=== PATIENT | female | born 1960 | race Two or more races ===

== ENCOUNTER 2016-10-13 09:33 | Outpatient (CLI) | payer BC ==
[~2016-10-13 09:33] MED LIST: ATOR10TA PO; Docusate Sodium PO; FERR-58 PO; FOLI1TAB16 PO; HYDR-3326 PO; MIRT7.5T10 PO; PANT40TA2 PO; SENN1TAB6 PO; VENL150C58 PO
== END 2016-10-13 23:59 | disposition home or self-care (01) ==
LOC: LAB 09:33
DX: M47.892 Other spondylosis, cervical region (principal); R20.0 Anesthesia of skin
CPT/HCPCS: 72141-TC

== ENCOUNTER 2016-12-21 09:36 | Outpatient (CLI) | payer BC ==
[2016-12-21 10:11] LABS: BASOPHILS % (AUTO) 0.4 % (0.0-2.0); EOSINOPHILS # (AUTO) 0.1 /CMM (0.0-0.7); HEMATOCRIT 42 % (33-45); LYMPHOCYTES # (AUTO) 1.8 /CMM (0.8-4.8); LYMPHOCYTES % (AUTO) 26.5 % (20.0-44.0); MEAN CORPUSCULAR HEMOGLOBIN 26 PG (26.0-33.0); MEAN CORPUSCULAR HGB CONC 33 g/dl (31.0-36.0); MEAN CORPUSCULAR VOLUME 78 fL (82-100); MONOCYTES # (AUTO) 0.5 /CMM (0.1-1.30); MONOCYTES % (AUTO) 6.8 % (2.0-12.0); NEUTROPHILS # (AUTO) 4.3 /CMM (1.8-8.9); NEUTROPHILS % (AUTO) 64.3 % (43.0-81.0); PLATELET COUNT (AUTO) 236 /CMM (150-450); RDW COEFFICIENT OF VARIATION 13.3 (11.5-15.0); RED BLOOD CELL COUNT(AUTO) 5.36 MIL/uL (4.0-5.2); WHITE BLOOD COUNT (AUTO) 6.8 K/uL (4.3-11.0)
[2016-12-21 10:26] LABS: ALBUMIN 3.7 g/dL (3.4-5.0); BILIRUBIN,TOTAL 0.3 mg/dL (0.2-1.0); CALCIUM, SERUM 8.8 mg/dL (8.5-10.1); CREATININE 0.8 mg/dL (0.6-1.3); POTASSIUM 4.1 mmol/L (3.5-5.1); TOTAL PROTEIN, SERUM 7.5 g/dL (6.4-8.2)
[2016-12-21 10:35] LABS: THYROID STIMULATING HORMONE 3.152 uIU/mL (0.358-3.74)
== END 2016-12-21 23:59 | disposition home or self-care (01) ==
LOC: LAB 09:36
PROVIDERS: ATTEND Family Medicine
DX: E55.9 Vitamin D deficiency, unspecified (principal); E78.5 Hyperlipidemia, unspecified
CPT/HCPCS: 36415; 80053-TC; 80061-TC; 82306; 84439-TC; 84443-TC; 85025-TC

== ENCOUNTER 2017-01-12 13:11 | Outpatient (CLI) | payer BC ==
[2017-01-12 13:53] LABS: BASOPHILS % (AUTO) 0.5 % (0.0-2.0); EOSINOPHILS # (AUTO) 0.1 /CMM (0.0-0.7); EOSINOPHILS % (AUTO) 1.8 % (0.0-6.0); HEMATOCRIT 42 % (33-45); LYMPHOCYTES # (AUTO) 1.8 /CMM (0.8-4.8); LYMPHOCYTES % (AUTO) 29.1 % (20.0-44.0); MEAN CORPUSCULAR HEMOGLOBIN 27 PG (26.0-33.0); MEAN CORPUSCULAR HGB CONC 34 g/dl (31.0-36.0); MEAN CORPUSCULAR VOLUME 80 fL (82-100); MONOCYTES # (AUTO) 0.6 /CMM (0.1-1.30); MONOCYTES % (AUTO) 9.9 % (2.0-12.0); NEUTROPHILS # (AUTO) 3.7 /CMM (1.8-8.9); NEUTROPHILS % (AUTO) 58.7 % (43.0-81.0); PLATELET COUNT (AUTO) 247 /CMM (150-450); RDW COEFFICIENT OF VARIATION 14.5 (11.5-15.0); RED BLOOD CELL COUNT(AUTO) 5.26 MIL/uL (4.0-5.2); WHITE BLOOD COUNT (AUTO) 6.3 K/uL (4.3-11.0)
[2017-01-12 14:13] LABS: ALBUMIN 3.8 g/dL (3.4-5.0); BILIRUBIN,TOTAL 0.3 mg/dL (0.2-1.0); CALCIUM, SERUM 9.1 mg/dL (8.5-10.1); CREATININE 0.8 mg/dL (0.6-1.3); POTASSIUM 3.6 mmol/L (3.5-5.1); TOTAL PROTEIN, SERUM 7.6 g/dL (6.4-8.2)
[2017-01-13 13:12] LABS: *SPE PROTEIN TOTAL 7.2 g/dL (6.0-8.5)
== END 2017-01-12 23:59 | disposition home or self-care (01) ==
LOC: LAB 13:11
PROVIDERS: ATTEND Family Medicine
DX: R74.8 Abnormal levels of other serum enzymes (principal)
CPT/HCPCS: 36415; 80053-TC; 85025-TC

== ENCOUNTER 2017-02-22 11:54 | Outpatient (CLI) | payer BC ==
[2017-02-22 13:01] LABS: ALBUMIN 4.1 g/dL (3.4-5.0); BILIRUBIN,TOTAL 0.3 mg/dL (0.2-1.0); CREATININE 0.9 mg/dL (0.6-1.3); POTASSIUM 3.5 mmol/L (3.5-5.1)
[2017-02-25 06:12] LABS: *IFEU ALBUMIN Note: % (.); *PEU PROTEIN,TOTAL 18.3 mg/dL (Not Estab.)
== END 2017-02-22 23:59 | disposition home or self-care (01) ==
LOC: LAB 11:54
PROVIDERS: ATTEND Internal Medicine Hematology & Oncology
DX: M16.0 Bilateral primary osteoarthritis of hip (principal); M41.84 Other forms of scoliosis, thoracic region; M41.86 Other forms of scoliosis, lumbar region; M47.894 Other spondylosis, thoracic region; D47.2 Monoclonal gammopathy
CPT/HCPCS: 36415; 77075-TC; 80053-TC; 82232; 84156; 84166; 86335

== ENCOUNTER 2017-03-17 10:52 | Inpatient (IN) | payer BC ==
[~2017-03-17] VITALS: Ht 154.9 cm; Wt 70.3 kg
--- NOTE | 2017-03-17 10:52 | NUR ---
PRESENTS SELF TO ED CHEST TIGHTNESS/ PRESSURE,6, NON RADIATING-- PER PT SHE WAS SENT BY MD ARREOLA FOR FURTHER EVALUATION DT ABNORMAL EKG. PATIENT APPEARS IN NO APPARENT DISTRESS. RESPIRATION EVEN AND UNLABORED. SKIN IS WARM TO TOUCH AND NON DIAPHORETIC. AFEBRILE. VSS
[2017-03-17 11:18] LABS: BASOPHILS % (AUTO) 0.4 % (0.0-2.0); EOSINOPHILS # (AUTO) 0.1 /CMM (0.0-0.7); EOSINOPHILS % (AUTO) 1.5 % (0.0-6.0); HEMATOCRIT 44 % (33-45); HEMOGLOBIN 14.6 g/dL (11.5-14.8); LYMPHOCYTES # (AUTO) 1.8 /CMM (0.8-4.8); LYMPHOCYTES % (AUTO) 21.9 % (20.0-44.0); MEAN CORPUSCULAR HEMOGLOBIN 27 PG (26.0-33.0); MEAN CORPUSCULAR HGB CONC 34 g/dl (31.0-36.0); MEAN CORPUSCULAR VOLUME 79 fL (82-100); MONOCYTES # (AUTO) 0.5 /CMM (0.1-1.30); MONOCYTES % (AUTO) 6.2 % (2.0-12.0); NEUTROPHILS # (AUTO) 5.6 /CMM (1.8-8.9); PLATELET COUNT (AUTO) 240 /CMM (150-450); RDW COEFFICIENT OF VARIATION 13.5 (11.5-15.0); RED BLOOD CELL COUNT(AUTO) 5.51 MIL/uL (4.0-5.2)
[2017-03-17 11:28] LABS: CALCIUM, SERUM 8.7 mg/dL (8.5-10.1); CARBON DIOXIDE 26 mmol/L (21-32); CHLORIDE 101 mmol/L (98-107); CREATININE 0.9 mg/dL (0.6-1.3); GLUCOSE 158 mg/dL (74-106); POTASSIUM 3.7 mmol/L (3.5-5.1); SODIUM SERUM 134 mmol/L (136-145); UREA NITROGEN, BLOOD 9 mg/dL (7-18)
[2017-03-17 11:34] LABS: INR 0.9 (0.87-1.13); PROTHROMBIN TIME 9.4 SECS (9.5-12.7)
[2017-03-17 11:38] LABS: TROPONIN I < 0.017 ng/mL (0.00-0.056)
[2017-03-17] MEDS ORDERED: GABA-534 PO (11:39)
[2017-03-17] MEDS ORDERED: OMEP20CA10 PO (11:39)
[2017-03-17] MEDS ORDERED: ATEN25TA PO (11:39)
[2017-03-17] MEDS ORDERED: VENL75CA62 PO (11:39)
[2017-03-17] MEDS ORDERED: BACL10TA PO (11:39)
--- NOTE | 2017-03-17 12:05 | NUR ---
PATIENT WAS TAKEN TO CT
--- NOTE | 2017-03-17 12:51 | NUR ---
FRANSICO SHERMAN PAGED [phone]
--- NOTE | 2017-03-17 13:02 | NUR ---
TRIED GIVING REPORT BUT RN IS STILL DISCHARGING ANOTHER PATIENT
--- NOTE | 2017-03-17 13:59 | NUR ---
PT TRANSPORTED TO [facility]
--- NOTE | 2017-03-17 15:45 | NUR ---
SALES REPRESENTATIVE DOOR TO DOOR NOTES PATIENT RECEIVED FROM E.R. DEPT VIA [facility], ADMITTED UNDER FRANSICO BROOKS BIOSTATISTICS PROFESSOR, WITH DIAGNOSIS OF CHEST PAIN, PATIENT IS ALERT AND ORIENTED, VERBALLY RESPONSIVE, DENIES CHEST PAIN AT THIS TIME, NO SOB NOTED, SKIN ASSESSMENT COMPLETED, SKIN DRY AND INTACT, PIV ON LEFT AC PATENT AND FLUSHES WELL, PATIENT ABLE TO AMBULATE INDEPENDENTLY, CONTINENT TO BOTH BOWEL AND BLADDER, FRANSICO SHERMAN SEEN AND EXAMINED THE PATIENT, AND RECOMMENDED STRESS TEST, PATIENT AGREED, ALL NEEDS ATTENDED AND MET, SAFETY MEASURES IN PLACED, CALL LIGHT WITHIN REACH, WILL CONTINUE TO MONITOR.
--- NOTE | 2017-03-17 18:52 | NUR ---
ROLL CAPPER NOTES PATIENT ALERT AND ORIENTED, NO DISTRESS NOTED, DENIES CHEST PAIN AT THIS TIME, IVF INFUSING AND TOLERATING WELL, PATIENT IS SCHEDULED TO HAVE CT ANGIO HEART WITH 3D IMAGES TOMORROW, PER DR. MENDEZ, PATIENT WILL BE NPO AFTER MIDNIGHT, ALL NEEDS ATTENDED AND ANTICIPATED, CALL LIGHT WITHIN REACH, WILL CONTINUE TO MONITOR.
--- NOTE | 2017-03-17 19:30 | NUR ---
PARTS ADVISOR NOTE: PATIENT RESTING IN BED, NO ACUTE DISTRESS NOTED. BREATHING EVEN AND UNLABORED, NO SOB NOTED. IV TO LAC IN PLACE, INFUSING NS AT 75 ML/HR. TELE READING SR 100. INSTRUCTED PATIENT THAT SHE WILL BE HAVING CT ANGIO OF HEART WITH 3D IMAGING TOMORROW AND NOT TO EAT OR DRINK AFTER MIDNIGHT. CONSENT SIGNED AND IN CHART ALREADY. BED LOCKED AND IN LOWEST POSITION, CALL LIGHT IN REACH. WILL CONTINUE TO MONITOR.
[2017-03-17 20:00] VITALS: BP 121/82
[2017-03-18] VITALS: BP 138/81
--- NOTE | 2017-03-18 00:05 | NUR ---
SEPHORA PRODUCT CONSULTANT NOTE: PATIENT NPO FOR CT ANGIO HEART WITH 3D IMAGING, INSTRUCTED PATIENT THAT SHE NO LONGER CAN EAT OR DRINK. LAST OFFER FOR JUICE OR WATER GIVEN. WATER PITCHERS EMPTIED AND REMOVED. WILL CONTINUE TO MONITOR.
[2017-03-18 04:00] VITALS: BP 137/80
[2017-03-18 06:00] VITALS: BP 139/83
--- NOTE | 2017-03-18 06:05 | NUR ---
ENVIRONMENTAL WEB CRAWLER NOTE: PATIENT RESTING IN BED, NO ACUTE DISTRESS NOTED. BREATHING EVEN AND UNLABORED, NO SOB NOTED. IV TO LAC IN PLACE, INFUSING NS AT 75 ML/HR. TELE READING SR 80. PATIENT WILL HAVE CT ANGIO OF HEART WITH 3D IMAGING TODAY AND DID NOT TO EAT OR DRINK SINCE MIDNIGHT. CONSENT SIGNED AND IN CHART ALREADY. BED LOCKED AND IN LOWEST POSITION, CALL LIGHT IN REACH. WILL ENDORSE TO DAY NURSE TO CONTINUE WITH PLAN OF CARE.
[2017-03-18 07:05] LABS: BASOPHILS % (AUTO) 0.6 % (0.0-2.0); EOSINOPHILS # (AUTO) 0.2 /CMM (0.0-0.7); EOSINOPHILS % (AUTO) 2.6 % (0.0-6.0); HEMATOCRIT 42 % (33-45); HEMOGLOBIN 13.6 g/dL (11.5-14.8); LYMPHOCYTES # (AUTO) 1.8 /CMM (0.8-4.8); LYMPHOCYTES % (AUTO) 27.1 % (20.0-44.0); MEAN CORPUSCULAR HEMOGLOBIN 26 PG (26.0-33.0); MEAN CORPUSCULAR HGB CONC 33 g/dl (31.0-36.0); MEAN CORPUSCULAR VOLUME 80 fL (82-100); MONOCYTES # (AUTO) 0.7 /CMM (0.1-1.30); MONOCYTES % (AUTO) 10.7 % (2.0-12.0); NEUTROPHILS # (AUTO) 3.9 /CMM (1.8-8.9); PLATELET COUNT (AUTO) 245 /CMM (150-450); RDW COEFFICIENT OF VARIATION 14.8 (11.5-15.0); RED BLOOD CELL COUNT(AUTO) 5.19 MIL/uL (4.0-5.2); WHITE BLOOD COUNT (AUTO) 6.6 K/uL (4.3-11.0)
[2017-03-18 07:31] LABS: CALCIUM, SERUM 8.7 mg/dL (8.5-10.1); CREATININE 0.7 mg/dL (0.6-1.3); MAGNESIUM 2.2 mg/dL (1.8-2.4); PHOSPHORUS 3.7 mg/dL (2.5-4.9); POTASSIUM 4.4 mmol/L (3.5-5.1)
[2017-03-18 08:00] VITALS: BP 137/89
--- NOTE | 2017-03-18 08:00 | NUR ---
SUPERVISOR UNDERWRITING CLERKS NOTES PATIENT RESTING IN BED, AWAKE, TALKATIVE. NO C/O CHEST PAIN, NO SOB NOTED. AMBULATORY & CONTINENT OF B & BM. BED IN LOW LOCKED POSITION. CALL LIGHT WITHIN REACH. OBSERVING CLOSELY.
--- NOTE | 2017-03-18 12:00 | NUR ---
RECORDS MANAGEMENT COORDINATOR NOTES PATIENT RESTING IN BED. NO C/O CHEST PAIN NOTED. AMBULATORY TOLERATED. NPO AT THIS TIME DUE TO SCHEDULED CT ANGIOGRAM OF HEART WITH 3D IMAGE. NO OTHER COMPLICATIONS NOTED. MONITORING CLOSELY.
[2017-03-18] MEDS ORDERED: LEVO25TA7 PO (13:38)
[2017-03-18] MEDS ORDERED: ASPI81TA2 PO (13:38)
[2017-03-18] MEDS ORDERED: METO25TA20 PO (13:38)
[2017-03-18 16:00] VITALS: BP 123/81
--- NOTE | 2017-03-18 17:00 | NUR ---
MS RN PATIENT MONITORED ORDERED, WILL BE DISCHARGE HOME SOON.
--- NOTE | 2017-03-18 18:15 | NUR ---
MS RN PRESCRIPTION FAXED TO PHARMACY,PATIENT WENT HOME ACCOMPANIED BY FAMILY MEMBER, DISCHARGE INSTRUCTIONS GIVEN AND UNDERSTOOD, NO DISTRESS NOTED.
== END 2017-03-18 18:51 | disposition home or self-care (01) | DRG 303 ==
LOC: ER 10:54 → TELE 12:40
PROVIDERS: ADMIT Nurse Practitioner Acute Care; ATTEND Nurse Practitioner Acute Care
DX: I25.119 Atherosclerotic heart disease of native coronary artery with unspecified angina pectoris (principal); I42.9 Cardiomyopathy, unspecified; E87.1 Hypo-osmolality and hyponatremia; I10 Essential (primary) hypertension; K21.9 Gastro-esophageal reflux disease without esophagitis; E86.9 Volume depletion, unspecified; E78.5 Hyperlipidemia, unspecified; F32.9 Major depressive disorder, single episode, unspecified; E03.9 Hypothyroidism, unspecified; R00.0 Tachycardia, unspecified; M54.12 Radiculopathy, cervical region
CPT/HCPCS: 36415; 71010-TC; 75574; 80048-TC; 80061-TC; 83735-TC; 83880; 84100-TC; 84439-TC; 84443-TC; 84480; 84484-TC; 85025-TC; 85730-TC; 87081-TC; 93307-TC; A4606; J2785; J3490; J7030; J7050; Q9967; Z7610

== ENCOUNTER 2017-04-07 11:44 | Outpatient (CLI) | payer BC ==
[~2017-04-07 11:44] MED LIST changes: +ASPI81TA2 PO; +ATEN25TA PO; +BACL10TA PO; -Docusate Sodium PO; -FERR-58 PO; -FOLI1TAB16 PO; +GABA-534 PO; -HYDR-3326 PO; +LEVO25TA7 PO; +METO25TA20 PO; +OMEP20CA10 PO; -PANT40TA2 PO; -SENN1TAB6 PO; -VENL150C58 PO; +VENL75CA62 PO
[2017-04-07 12:24] LABS: BASOPHILS % (AUTO) 0.7 % (0.0-2.0); EOSINOPHILS # (AUTO) 0.1 /CMM (0.0-0.7); EOSINOPHILS % (AUTO) 1.9 % (0.0-6.0); HEMATOCRIT 43 % (33-45); HEMOGLOBIN 14.2 g/dL (11.5-14.8); LYMPHOCYTES # (AUTO) 2.2 /CMM (0.8-4.8); LYMPHOCYTES % (AUTO) 29.4 % (20.0-44.0); MEAN CORPUSCULAR HEMOGLOBIN 26 PG (26.0-33.0); MEAN CORPUSCULAR HGB CONC 33 g/dl (31.0-36.0); MEAN CORPUSCULAR VOLUME 80 fL (82-100); MONOCYTES # (AUTO) 0.7 /CMM (0.1-1.30); MONOCYTES % (AUTO) 8.9 % (2.0-12.0); NEUTROPHILS # (AUTO) 4.4 /CMM (1.8-8.9); NEUTROPHILS % (AUTO) 59.1 % (43.0-81.0); PLATELET COUNT (AUTO) 249 /CMM (150-450); RDW COEFFICIENT OF VARIATION 14.4 (11.5-15.0); RED BLOOD CELL COUNT(AUTO) 5.44 MIL/uL (4.0-5.2); WHITE BLOOD COUNT (AUTO) 7.5 K/uL (4.3-11.0)
[2017-04-07 12:45] LABS: ALBUMIN 3.8 g/dL (3.4-5.0); BILIRUBIN,TOTAL 0.2 mg/dL (0.2-1.0); CALCIUM, SERUM 8.8 mg/dL (8.5-10.1); CREATININE 0.9 mg/dL (0.6-1.3); TOTAL PROTEIN, SERUM 7.6 g/dL (6.4-8.2)
[2017-04-07 12:54] LABS: T4 (THYROXINE) 10.4 ug/dL (4.7-13.3); THYROID STIMULATING HORMONE 3.715 uIU/mL (0.358-3.74)
== END 2017-04-07 23:59 | disposition home or self-care (01) ==
LOC: LAB 11:44
PROVIDERS: ATTEND Family Medicine
DX: R00.0 Tachycardia, unspecified (principal)
CPT/HCPCS: 36415; 80053-TC; 84436-TC; 84443-TC; 85025-TC

== ENCOUNTER 2017-05-19 08:58 | Outpatient (CLI) | payer BC ==
[2017-05-19 09:44] LABS: BASOPHILS # (AUTO) 0.1 /CMM (0.0-0.2); EOSINOPHILS # (AUTO) 0.2 /CMM (0.0-0.7); EOSINOPHILS % (AUTO) 3.1 % (0.0-6.0); HEMATOCRIT 42 % (33-45); HEMOGLOBIN 13.8 g/dL (11.5-14.8); LYMPHOCYTES # (AUTO) 1.9 /CMM (0.8-4.8); LYMPHOCYTES % (AUTO) 30.2 % (20.0-44.0); MEAN CORPUSCULAR HEMOGLOBIN 26 PG (26.0-33.0); MEAN CORPUSCULAR HGB CONC 33 g/dl (31.0-36.0); MEAN CORPUSCULAR VOLUME 78 fL (82-100); MONOCYTES # (AUTO) 0.6 /CMM (0.1-1.30); NEUTROPHILS # (AUTO) 3.5 /CMM (1.8-8.9); NEUTROPHILS % (AUTO) 56.7 % (43.0-81.0); PLATELET COUNT (AUTO) 287 /CMM (150-450); RDW COEFFICIENT OF VARIATION 13.6 (11.5-15.0); RED BLOOD CELL COUNT(AUTO) 5.34 MIL/uL (4.0-5.2); WHITE BLOOD COUNT (AUTO) 6.1 K/uL (4.3-11.0)
[2017-05-19 09:59] LABS: ALBUMIN 3.8 g/dL (3.4-5.0); BILIRUBIN,TOTAL 0.2 mg/dL (0.2-1.0); CALCIUM, SERUM 9.5 mg/dL (8.5-10.1); CREATININE 0.8 mg/dL (0.6-1.3); POTASSIUM 4.3 mmol/L (3.5-5.1); TOTAL PROTEIN, SERUM 7.6 g/dL (6.4-8.2)
[2017-05-20 10:59] LABS: BETA-2 MICROGLOBULIN, SERUM 1.7 mg/L (0.6-2.4)
[2017-05-20 11:11] LABS: *IFE A/G RATIO 1.3 (0.7-1.7); *IFE ALBUMIN 3.9 g/dL (2.9-4.4); *IFE ALPHA-2-GLOBULIN 0.6 g/dL (0.4-1.0); *IFE BETA GLOBULIN 1.2 g/dL (0.7-1.3); *IFE GAMMA GLOBULIN 1.2 g/dL (0.4-1.8); *IFE M-SPIKE Not Observed g/dL (Not Observed); *IFEALPHA-1-GLOBULIN 0.2 g/dL (0.0-0.4); *SPE PROTEIN TOTAL 7.1 g/dL (6.0-8.5); IMMUNOGLOBULIN A, SERUM 223 mg/dL (87-352); IMMUNOGLOBULIN G, SERUM 1078 mg/dL (700-1600); IMMUNOGLOBULIN M, SERUM 116 mg/dL (26-217)
[2017-05-24 19:45] LABS: *PEU PROTEIN,TOTAL <4.0
== END 2017-05-19 23:59 ==
LOC: RAD 08:58
PROVIDERS: ATTEND Internal Medicine Hematology & Oncology
DX: D47.2 Monoclonal gammopathy (principal); M89.8X8 Other specified disorders of bone, other site
CPT/HCPCS: 36415; 70260-TC; 80053-TC; 82232; 82784; 84155; 84156; 84165; 84166; 85025-TC; 86334; 86335

== ENCOUNTER 2017-06-03 15:30 | Outpatient (CLI) | payer BC ==
[2017-06-03 16:12] LABS: BASOPHILS % (AUTO) 0.4 % (0.0-2.0); EOSINOPHILS # (AUTO) 0.3 /CMM (0.0-0.7); EOSINOPHILS % (AUTO) 2.6 % (0.0-6.0); HEMATOCRIT 43 % (33-45); LYMPHOCYTES # (AUTO) 2.7 /CMM (0.8-4.8); LYMPHOCYTES % (AUTO) 27.3 % (20.0-44.0); MEAN CORPUSCULAR HEMOGLOBIN 26 PG (26.0-33.0); MEAN CORPUSCULAR HGB CONC 33 g/dl (31.0-36.0); MEAN CORPUSCULAR VOLUME 79 fL (82-100); MONOCYTES # (AUTO) 0.9 /CMM (0.1-1.30); MONOCYTES % (AUTO) 8.8 % (2.0-12.0); NEUTROPHILS % (AUTO) 60.9 % (43.0-81.0); PLATELET COUNT (AUTO) 305 /CMM (150-450); RDW COEFFICIENT OF VARIATION 14.4 (11.5-15.0); RED BLOOD CELL COUNT(AUTO) 5.46 MIL/uL (4.0-5.2); WHITE BLOOD COUNT (AUTO) 9.8 K/uL (4.3-11.0)
[2017-06-03 16:13] LABS: APPEARANCE,URINE CLEAR (CLEAR); BILIRUBIN,URINE NEGATIVE (NEGATIVE); BLOOD, URINE NEGATIVE Ery/uL (NEGATIVE); COLOR,URINE YELLOW (YELLOW); KETONES,URINE TRACE (NEGATIVE); LEUKOCYTE ESTERASE ,URINE NEGATIVE (NEGATIVE); NITRITE, URINE NEGATIVE (NEGATIVE); PROTEIN,URINE NEGATIVE (NEGATIVE); UGLUCOSE NEGATIVE (NEGATIVE); UROBILINOGEN,URINE 0.2 EU/dL (0.2)
[2017-06-03 16:41] LABS: BACTERIA,URINE Few /HPF (None Seen); RBC,URINE 0-2 /HPF (0-2); SQUAMOUS EPITHELIAL CELL,UR Few /HPF (None Seen)
[2017-06-03 16:57] LABS: BILIRUBIN,TOTAL 0.2 mg/dL (0.2-1.0); CALCIUM, SERUM 9.6 mg/dL (8.5-10.1); CREATININE 0.9 mg/dL (0.6-1.3); POTASSIUM 3.8 mmol/L (3.5-5.1); TOTAL PROTEIN, SERUM 7.9 g/dL (6.4-8.2)
[2017-06-03 17:23] LABS: INR 0.92 (0.87-1.13); PROTHROMBIN TIME 9.6 SECS (9.5-12.7)
== END 2017-06-03 23:59 | disposition home or self-care (01) ==
LOC: LAB 15:30
PROVIDERS: ATTEND Family Medicine
DX: Z01.818 Encounter for other preprocedural examination (principal); M47.814 Spondylosis without myelopathy or radiculopathy, thoracic region
CPT/HCPCS: 36415; 71020-TC; 80053-TC; 81000-TC; 85025-TC; 85730-TC

== ENCOUNTER 2017-06-10 08:56 | Day surgery (SDC) | payer BC ==
[~2017-06-10 08:56] MED LIST changes: +ASPI-1169 PO; -ASPI81TA2 PO; +Sodium Chloride 4 MEQ/ML VIAL IV ONE
[2017-06-10] MEDS ORDERED: LIDOCAINE 1%-EPI 1:100,000 50 ML VIAL IJ ONE (08:57)
[2017-06-10] MEDS ORDERED: CEFAZOLIN SODIUM/DEXTROSE,ISO 50 ML IV ONE (10:00)
[2017-06-10] MEDS ORDERED: MIDAZOLAM HCL 2 MG/2ML VIAL ONE (11:55)
[2017-06-10] MEDS ORDERED: BUPIVACAINE 0.5 % PF 150 MG/30 ML VIAL ONE (12:12)
[2017-06-10] MEDS ORDERED: METRONIDAZOLE 500MG/ NS 100ML 100 ML IV ONE (12:40)
[2017-06-10] MEDS ORDERED: GELATIN SPONGE,ABSORBABLE 1 EA SPONGE TP ONE (13:18)
[2017-06-10] MEDS ORDERED: THROMBIN (BOVINE) 5,000 UNITS VIAL TP ONE (13:19)
[2017-06-10] MEDS ORDERED: HYDROCODONE/APAP 5/325MG 1 EACH TABLET PO PRN ×2 (14:00)
[2017-06-10] MEDS ORDERED: ONDANSETRON HCL/PF 4 MG/2 ML VIAL IVP PRN (14:00)
[2017-06-10] MEDS ORDERED: HYDROMORPHONE INJ 2 MG/ML DISP.SYRIN IV PRN (14:00)
[2017-06-10] MEDS ORDERED: ANESTHESIA TRAY IN PYXIS 1 EA TRAY MC ONE (14:03)
[2017-06-10] MEDS ORDERED: ONDANSETRON HCL/PF 4 MG/2 ML VIAL ONE (14:37)
== END 2017-06-10 23:59 | disposition home or self-care (01) ==
LOC: DS 08:56
PROVIDERS: ATTEND Surgery
DX: K64.4 Residual hemorrhoidal skin tags (principal); K64.8 Other hemorrhoids; I10 Essential (primary) hypertension; E11.9 Type 2 diabetes mellitus without complications; J45.909 Unspecified asthma, uncomplicated; K21.9 Gastro-esophageal reflux disease without esophagitis; F32.9 Major depressive disorder, single episode, unspecified
CPT/HCPCS: 82962-TC; A6402; A6403; J0690; J1100; J1885; J2250; J2405; J2704; J3490

== ENCOUNTER 2017-06-20 12:26 | Inpatient (IN) | payer BC ==
[~2017-06-20] VITALS: Ht 154.9 cm; Wt 66.2 kg
[~2017-06-20 12:26] MED LIST changes: -Sodium Chloride 4 MEQ/ML VIAL IV ONE
--- NOTE | 2017-06-20 12:40 | NUR ---
PT CAME IN WITH C/O RECTAL PAIN FROM HEMRRHOIDECTOMY ON 06/10/17, UNRELIEVED WITH NORCO. SEEN BY MD FOR EVAL. VSS. SAFETY AND COMFORT MEASURES PROVIDED. WILL MONITOR.
--- NOTE | 2017-06-20 12:51 | NUR ---
CALLED DR. Bang NAVA [phone]
[2017-06-20] MEDS ORDERED: ONDANSETRON HCL/PF 4 MG/2 ML VIAL ONE (12:54)
[2017-06-20] MEDS ORDERED: MORPHINE SULFATE INJ 4 MG/ML DISP.SYRIN ONE ×2 (12:55→16:27)
[2017-06-20] MEDS ORDERED: MORPHINE SULFATE INJ 2 MG/ML DISP.SYRIN IV ONE ×2 (13:00→16:30)
[2017-06-20] MEDS ORDERED: ONDANSETRON HCL/PF 4 MG/2 ML VIAL IVP ONE (13:00)
--- NOTE | 2017-06-20 13:15 | NUR ---
IV ACCESS STARTED. BLOOD DRAWN FOR LABS. MEDICATED ORDERED.
[2017-06-20 13:16] LABS: CREATININE 0.9 mg/dL (0.6-1.3); POTASSIUM 4.9 mmol/L (3.5-5.1)
[2017-06-20 13:17] LABS: EOSINOPHILS # (AUTO) 0.2 /CMM (0.0-0.7); EOSINOPHILS % (AUTO) 1.8 % (0.0-6.0); HEMATOCRIT 42 % (33-45); HEMOGLOBIN 13.5 g/dL (11.5-14.8); LYMPHOCYTES # (AUTO) 1.7 /CMM (0.8-4.8); LYMPHOCYTES % (AUTO) 15.2 % (20.0-44.0); MEAN CORPUSCULAR HEMOGLOBIN 26 PG (26.0-33.0); MEAN CORPUSCULAR HGB CONC 32 g/dl (31.0-36.0); MEAN CORPUSCULAR VOLUME 79 fL (82-100); MONOCYTES # (AUTO) 0.7 /CMM (0.1-1.30); MONOCYTES % (AUTO) 6.7 % (2.0-12.0); NEUTROPHILS # (AUTO) 8.4 /CMM (1.8-8.9); NEUTROPHILS % (AUTO) 76.3 % (43.0-81.0); PLATELET COUNT (AUTO) 401 /CMM (150-450); RDW COEFFICIENT OF VARIATION 14.6 (11.5-15.0); RED BLOOD CELL COUNT(AUTO) 5.29 MIL/uL (4.0-5.2); WHITE BLOOD COUNT (AUTO) 11.1 K/uL (4.3-11.0)
[2017-06-20] MEDS ORDERED: CARV3.122 PO (13:57)
[2017-06-20] MEDS ORDERED: MIRT15TA7 PO (13:57)
[2017-06-20] MEDS ORDERED: METF500T4 PO (13:57)
--- NOTE | 2017-06-20 14:37 | NUR ---
DR NAVA WAS PAGED
--- NOTE | 2017-06-20 16:00 | NUR ---
DR. NAVA AT BS. ASSISTED WITH WOUND CHECK AND CLEANING.
[2017-06-20] MEDS ORDERED: HYDROMORPHONE 1 MG/1 ML DISP.SYRIN IV ONE (16:30)
[2017-06-20] MEDS ORDERED: PIPERACILLIN /TAZOBACTAM 3.375 G in IV D5W 50 ML IV ONE (16:30)
--- NOTE | 2017-06-20 16:31 | NUR ---
PT MEDICATED ORDERED. FAMILY MEMBER REMAINS AT BS.
--- NOTE | 2017-06-20 16:50 | NUR ---
[facility] WAS CALLED, DR HAY HAS BEEN PAGED
--- NOTE | 2017-06-20 17:09 | NUR ---
CALLED [facility], DR HAY HAS BEEN PAGED
--- NOTE | 2017-06-20 17:10 | NUR ---
MEDSURGE ROOM 200
[2017-06-20] MEDS ORDERED: HYDROMORPHONE INJ 2 MG/ML DISP.SYRIN IV PRN (17:30)
[2017-06-20] MEDS ORDERED: HYDROMORPHONE 1 MG/1 ML DISP.SYRIN IV PRN ×2 (17:30→18:30)
--- NOTE | 2017-06-20 17:30 | NUR ---
CALLED FOR FOOD TRAY FOR PT.
--- NOTE | 2017-06-20 18:12 | NUR ---
REPORT GIVEN TO VLADIMIR SALINAS FOR MS 200.
[2017-06-20] MEDS ORDERED: MAG HYDROX/AL HYDROX/SIMETH 30 ML UDC PO PRN (18:30)
[2017-06-20] MEDS ORDERED: ONDANSETRON HCL/PF 4 MG/2 ML VIAL IVP PRN (18:30)
[2017-06-20] MEDS ORDERED: ZOLPIDEM TARTRATE 5 MG TABLET PO PRN (18:30)
[2017-06-20] MEDS ORDERED: Z GUARD REMEDY 2 OZ OINT TP PRN (18:30)
[2017-06-20] MEDS ORDERED: MORPHINE SULFATE INJ 2 MG/ML DISP.SYRIN IV PRN (18:30)
[2017-06-20] MEDS ORDERED: ACETAMINOPHEN 325 MG TABLET PO PRN (18:30)
[2017-06-20] MEDS ORDERED: MAGNESIUM HYDROXIDE 30 ML UDC PO PRN (18:30)
[2017-06-20] MEDS ORDERED: ALPRAZOLAM 0.25 MG TABLET PO PRN (18:30)
[2017-06-20] MEDS ORDERED: HYDROCODONE/APAP 5/325MG 1 EACH TABLET PO PRN (18:30)
--- NOTE | 2017-06-20 18:50 | NUR ---
MANAGER CIVIL NOTE RECEIVED PT. IN STABLE CONDITION IN WHEELCHAIR A&OX4, PT.'S AT BEDSIDE. REPORT GIVEN BY JT IN ER.
[2017-06-20] MEDS: MORPHINE SULFATE INJ 4 MG/ML DISP.SYRIN IV PRN ×2 (19:14→21:34)
[2017-06-20] MEDS: PIPERACILLIN /TAZOBACTAM 3.375 G in IV D5W 50 ML IV SCH (19:21)
[2017-06-20 19:30] VITALS: BP 129/73
[2017-06-20] MEDS ORDERED: MORPHINE SULFATE INJ 4 MG/ML DISP.SYRIN IV PRN (19:30)
--- NOTE | 2017-06-20 19:30 | NUR ---
RN NOTES RECEIVED PATIENT IN BED AWAKE, AO X 3, ABLE TO MAKE NEEDS KNOWN. NO ACUTE DISTRESS NOTED. RECTAL PAIN 3/10 AT THIS TIME, BUT GOES UP TO 10/10. NO SYMPTOMS OF HYPER/HYPOGLYCEMIA. IV SITE PATENT, INTACT; FLUSHED. SAFETY REMINDERS GIVEN. ON LOW BED WITH BILATERAL UPPER SIDE RAILS UP. CALL BUTTON WITHIN EASY REACH. WILL CONTINUE TO MONITOR.
[2017-06-20] MEDS: ENOXAPARIN SODIUM 40 MG/0.4 ML DISP.SYRIN SQ SCH (19:32)
[2017-06-20 19:53] VITALS: BP 129/73
--- NOTE | 2017-06-20 19:57 | NUR ---
RN CLOSING NOTES PT. IS IN BED A&OX4. IS AT BEDSIDE. BREATHING UNLABORED, AND EVENLY ON ROOM AIR. NO S/S OF ACUTE DISTRESS AFTER PAIN MEDICATION WAS ADMINISTERED. IV FLUIDS RUNNING ON LEFT ANTECUBITAL IV SITE. BED IS IN LOWEST AND LOCKED POSITION, 2 SIDE RAILS UP, AND INSTRUCTED PT. TO USE CALL LIGHT FOR ASSISTANCE. WILL ENDORSE REPORT TO NURSE.
[2017-06-20] MEDS ORDERED: PIPERACILLIN /TAZOBACTAM 4.5 G in IV D5W 50 ML IV SCH (21:00)
[2017-06-20] MEDS: MIRTAZAPINE 15 MG TABLET PO SCH (21:26)
[2017-06-20] MEDS: ATORVASTATIN 10 MG TABLET PO SCH (21:26)
[2017-06-20] MEDS: POLYETHYLENE GLYCOL 3350 17 GM POWD.PACK PO SCH (21:28)
[2017-06-21] MEDS: PIPERACILLIN /TAZOBACTAM 3.375 G in IV D5W 50 ML IV SCH ×4 (00:27→17:45)
[2017-06-21] MEDS: MORPHINE SULFATE INJ 4 MG/ML DISP.SYRIN IV PRN ×4 (04:57→22:31)
--- NOTE | 2017-06-21 06:22 | NUR ---
RN NOTES PATIENT ASLEEP, EASILY AROUSABLE. RESPIRATIONS EVEN. NO SIGNS OF PAIN NOTED. DUE MEDS GIVEN WITH NO ASE NOTED. NEEDS ATTENDED. SAFETY PRECAUTIONS AND COMFORT MEASURES IN PLACE. WILL GIVE REPORT TO DAY SHIFT FOR CONTINUITY OF CARE.
[2017-06-21 06:39] LABS: BASOPHILS % (AUTO) 0.4 % (0.0-2.0); EOSINOPHILS # (AUTO) 0.3 /CMM (0.0-0.7); EOSINOPHILS % (AUTO) 3.8 % (0.0-6.0); HEMATOCRIT 37 % (33-45); LYMPHOCYTES # (AUTO) 1.4 /CMM (0.8-4.8); LYMPHOCYTES % (AUTO) 18.3 % (20.0-44.0); MEAN CORPUSCULAR HEMOGLOBIN 26 PG (26.0-33.0); MEAN CORPUSCULAR HGB CONC 33 g/dl (31.0-36.0); MEAN CORPUSCULAR VOLUME 80 fL (82-100); MONOCYTES # (AUTO) 0.8 /CMM (0.1-1.30); MONOCYTES % (AUTO) 9.9 % (2.0-12.0); NEUTROPHILS # (AUTO) 5.2 /CMM (1.8-8.9); NEUTROPHILS % (AUTO) 67.6 % (43.0-81.0); PLATELET COUNT (AUTO) 315 /CMM (150-450); RDW COEFFICIENT OF VARIATION 14.9 (11.5-15.0); RED BLOOD CELL COUNT(AUTO) 4.61 MIL/uL (4.0-5.2); WHITE BLOOD COUNT (AUTO) 7.7 K/uL (4.3-11.0)
[2017-06-21 06:52] LABS: CALCIUM, SERUM 8.7 mg/dL (8.5-10.1); MAGNESIUM 2.1 mg/dL (1.8-2.4); POTASSIUM 3.3 mmol/L (3.5-5.1)
--- NOTE | 2017-06-21 07:00 | NUR ---
RECEIVED PATIENT RESTING IN BED. NO SOB OR DISTRESS NOTED AT THIS TIME. DISCONNECTED PATIENT SO SHE CAN AMBULATE TO THE RESTROOM. RVI FROM CASE MAKER SET UP SITZ BATH AND EXPLAINED THE PATIENT CAN USE IT PRN. PT REPORTS UNDERSTANDING. BED IN A LOW POSITION, CALL LIGHT WITHIN PATIENT REACH. WILL CONTINUE TO MONITOR.
[2017-06-21 08:00] VITALS: BP 110/70
[2017-06-21] MEDS: BACLOFEN (10 MG) 10 MG TABLET PO SCH ×2 (08:24→16:25)
[2017-06-21] MEDS: METFORMIN 500 MG TABLET PO SCH ×2 (08:24→16:25)
[2017-06-21] MEDS: CARVEDILOL 3.125 MG TABLET PO SCH ×2 (08:24→16:25)
[2017-06-21] MEDS: VENLAFAXINE XR 75 MG CAP.SR.24H PO SCH (08:24)
[2017-06-21] MEDS: GABAPENTIN 300 MG CAPSULE PO SCH ×2 (08:24→16:25)
[2017-06-21] MEDS ORDERED: POTASSIUM CHLORIDE 20 MEQ TAB.PRT.SR PO SCH (11:30)
--- NOTE | 2017-06-21 14:59 | NUR ---
[facility] FOR [facility] BLUE PATIENT STATES SHE WOULD LIKE A STOOL SOFTENER. WAITING FOR MR TO RETURN CALL.
[2017-06-21 16:00] VITALS: BP 113/73
--- NOTE | 2017-06-21 16:05 | NUR ---
Spoke with patient, she is alert and pleasant. She lives with her family in a multiple level home in [place].Prior to admit- patient was ambulatory and independent with adl's. Has no DME or homehealth reported. Family will provide ride when discharge. Addendum: 06/21/17 at 1605 by MADDIE BROWN RN Amended: Links added.
[2017-06-21] MEDS: SENNOSIDES/DOCUSATE SODIUM 1 TAB TABLET PO SCH (16:25)
[2017-06-21] MEDS: ENOXAPARIN SODIUM 40 MG/0.4 ML DISP.SYRIN SQ SCH (17:45)
--- NOTE | 2017-06-21 19:23 | NUR ---
NO SIGNIFICANT CHANGES IN PATIENT CONDITION THROUGHOUT THE SHIFT. NO SOB OR DISTRESS NOTED AT THIS TIME. PATIENT REPORTS TOLERABLE PAIN. BED IN A LOW POSITION, CALL LIGHT WITHIN PATIENT REACH. REPORT GIVEN TO MARNI OSEGUERA.
--- NOTE | 2017-06-21 19:30 | NUR ---
rn note; RECEIVED PT IN BED AWAKE AND ALERT. BREATHING EVENLY. NO SOB. NAD. REPORTED PAIN IS MUCH BETTER THAN BEFORE. LAST BM WAS YESTERDAY. WILL TRY MIRALAX TONIGHT TO HELP BOWEL MANAGEMENT AND PREVENT CONSTIPATION. PT WAS ENCOURAGED TO USE THE SITZ BATH AT LEAST ONE BEFORE HS. NEEDS ATTENDED. BED LOW LOCKED. CALL LIGHT WITHIN REACH. WILL CONT TO MONITOR .
[2017-06-21 20:00] VITALS: BP 109/66
[2017-06-21] MEDS: ATORVASTATIN 10 MG TABLET PO SCH (21:58)
[2017-06-21] MEDS: MIRTAZAPINE 15 MG TABLET PO SCH (21:58)
[2017-06-21] MEDS: POLYETHYLENE GLYCOL 3350 17 GM POWD.PACK PO SCH (21:58)
--- NOTE | 2017-06-21 22:35 | NUR ---
MORPHINE 4MG IV GIVE ORDERED FOR C/O RECTAL PAIN. WILL CONT TO MONITOR,
[2017-06-22] MEDS: PIPERACILLIN /TAZOBACTAM 3.375 G in IV D5W 50 ML IV SCH ×5 (00:36→23:05)
--- NOTE | 2017-06-22 06:21 | NUR ---
RN NOTE; PT IN BED SLEEPING, AROUSES EASILY. BREATHING EVENLY. NO C/O PAIN OR DISCOMFORT AT THIS TIME. ONE DOSE OF PRN MORPHINE GIVEN EFFECTIVE. PT HAD A SITZ BATH X1, MANJULA WELL. NEEDS ATTENDED. BED LOW LOCKED. CALL LIGHT WITHIN REACH. WILL CONT TO MONITOR AND WILL ENDORSE TO AM SHIFT FOR OUMAR.
--- NOTE | 2017-06-22 07:00 | NUR ---
RECEIVED PATIENT IN BATHROOM. CURRENTLY DOING SITZ BATH. PT DENIES SOB OR DISTRESS. REPORTS TOLERABLE PAIN FOR NOW. PT INSTRUCTED TO PULL THE CORD IN THE BATHROOM IF SHE NEEDS ANY ASSISTANCE.
[2017-06-22 07:30] LABS: CALCIUM, SERUM 9.1 mg/dL (8.5-10.1); CREATININE 0.9 mg/dL (0.6-1.3); POTASSIUM 3.7 mmol/L (3.5-5.1)
[2017-06-22 08:00] VITALS: BP 115/88
[2017-06-22] MEDS: MORPHINE SULFATE INJ 4 MG/ML DISP.SYRIN IV PRN ×5 (08:35→23:04)
[2017-06-22] MEDS: METFORMIN 500 MG TABLET PO SCH ×2 (08:39→17:00)
[2017-06-22] MEDS: SENNOSIDES/DOCUSATE SODIUM 1 TAB TABLET PO SCH (08:40)
[2017-06-22] MEDS: GABAPENTIN 300 MG CAPSULE PO SCH ×2 (08:40→17:16)
[2017-06-22] MEDS: VENLAFAXINE XR 75 MG CAP.SR.24H PO SCH (08:40)
[2017-06-22] MEDS: CARVEDILOL 3.125 MG TABLET PO SCH ×2 (08:40→17:16)
[2017-06-22] MEDS: BACLOFEN (10 MG) 10 MG TABLET PO SCH ×2 (08:40→17:16)
[2017-06-22 16:00] VITALS: BP 132/79
--- NOTE | 2017-06-22 16:11 | NUR ---
CALLED [facility]GG[facility] TO DR NAVA, TO INFORM HER THAT THE PATIENT IS HAVING A SEVERE INCREASE IN PAIN THAT IS NOT RESOLVED BY PAIN MEDICATIONS. ALSO REPORTED INCREASED AMOUNTS OF YELLOW DISCHARGE COMING FROM THE RECTUM. OLGA LIDIA ORDERED LIDOCAINE JELLY AND STATES SHE WILL COME SEE THE PATIENT.
[2017-06-22] MEDS ORDERED: LIDOCAINE 2% JEL 5 ML TUBE TP PRN ×2 (16:30→19:00)
[2017-06-22] MEDS ORDERED: IOHEXOL-300 100 ML VIAL IV ONE (17:08)
[2017-06-22] MEDS ORDERED: IV NS 0.9% 250 ML IV ONE (17:08)
--- NOTE | 2017-06-22 17:25 | NUR ---
HOLDING [facility] UNTIL TUESDAY EVENING PATIENT IS GOING FOR CT WITH CONTRAST TONIGHT. AWARE.
[2017-06-22] MEDS: ENOXAPARIN SODIUM 40 MG/0.4 ML DISP.SYRIN SQ SCH (18:06)
--- NOTE | 2017-06-22 19:24 | NUR ---
PT NOW RESTING COMFORTABLY IN BED. NO SOB OR DISTRESS. PATIENT REPORTS TOLERABLE PAIN. BED IN A LOW POSITION, CALL LIGHT WITHIN PATIENT REACH. ENDORSED TO MARNI FOR OUMAR.
--- NOTE | 2017-06-22 19:30 | NUR ---
RN NOTE; RECEIVED PT IN BED AWAKE AND ALERT, BREATHING EVENLY. NO SOB. NAD. REPORTED PAIN UNDER CONTROL. HAD A BM TODAY. PT TEACHING REGARDING SITZ BATH PROVIDED. NEEDS ATTENDED. BED LOW LOCKED. CALL LIGHT WITHIN REACH. WILL CONT TO MONITOR,
[2017-06-22 20:00] VITALS: BP 107/71
[2017-06-22] MEDS: POLYETHYLENE GLYCOL 3350 17 GM POWD.PACK PO SCH (21:35)
[2017-06-22] MEDS: ATORVASTATIN 10 MG TABLET PO SCH (21:35)
[2017-06-22] MEDS: MIRTAZAPINE 15 MG TABLET PO SCH (21:35)
--- NOTE | 2017-06-22 23:05 | NUR ---
MORPHINE 8MG GIVEN PER PT'S REQUEST AND C/O SEVERE RECTAL PAIN. WILL CONT TO MONITOR
[2017-06-23] MEDS: PIPERACILLIN /TAZOBACTAM 3.375 G in IV D5W 50 ML IV SCH ×4 (05:37→23:13)
--- NOTE | 2017-06-23 06:45 | NUR ---
PT IN BED AWAKE AND ALERT. NO ACUTE EVENT DURING THE NIGHT. HAD A BM. SITZ BATH X1 PERFORMED BY THE PT. ON ONGOING IV ATB THERAPY TOLERATED WELL. NEW IV LINE STARTED ON L HAND W/ GOOD BLOOD DRAW. PAIN MEDICATION GIVEN ORDERED PER PT'S REQUEST. NEEDS ATTENDED, BED LOW LOCKED .CALL LIGHT WITHIN REACH. WILL CONT TO MONITOR AND WILL ENDORSE TO AM SHIFT FOR OUMAR.
[2017-06-23 08:00] VITALS: BP 125/71
--- NOTE | 2017-06-23 08:00 | NUR ---
MS RN NOTES PATIENT IN BED RESTING NO SOB OR ACUTE DISTRESS NOTED. PATIENT ALERT, ORIENTED X4. AMBULATORY PERIPHERAL IV ON LEFT HAND INTACT PATENT. BED IN LOW LOCKED POSITION CALL LIGHT WITHIN REACH. WILL CONTINUE TO MONITOR.
[2017-06-23] MEDS: METFORMIN 500 MG TABLET PO SCH ×2 (09:00→17:00)
[2017-06-23] MEDS: SENNOSIDES/DOCUSATE SODIUM 1 TAB TABLET PO SCH (09:00)
--- NOTE | 2017-06-23 09:00 | NUR ---
MS RN NOTES PATIENT SEEN AND EVALUATED BY DR. BLUE ORDERS NOTED AND CARRIED OUT.
[2017-06-23] MEDS: MORPHINE SULFATE INJ 4 MG/ML DISP.SYRIN IV PRN ×3 (09:01→19:10)
[2017-06-23] MEDS: VENLAFAXINE XR 75 MG CAP.SR.24H PO SCH (09:05)
[2017-06-23] MEDS: GABAPENTIN 300 MG CAPSULE PO SCH ×2 (09:06→17:59)
[2017-06-23] MEDS: BACLOFEN (10 MG) 10 MG TABLET PO SCH ×2 (09:06→17:53)
[2017-06-23] MEDS: CARVEDILOL 3.125 MG TABLET PO SCH ×2 (09:07→17:53)
[2017-06-23 16:00] VITALS: BP 123/81
[2017-06-23] MEDS: ENOXAPARIN SODIUM 40 MG/0.4 ML DISP.SYRIN SQ SCH (17:54)
--- NOTE | 2017-06-23 19:41 | NUR ---
MS RN NOTES PATIENT IN BED RESTING NO SOB OR ACUTE DISTRESS NOTED. ALL DUE MEDICATIONS ADMINISTERED. ALL NEEDS MET. PAIN CONTROLLED WITH MEDICATION. ENDORSED CARE TO PM SHIFT.
[2017-06-23 20:00] VITALS: BP 131/82
--- NOTE | 2017-06-23 20:00 | NUR ---
RN NOTES RECEIVED PATIENT IN BED, ALERT AND ORIENTED X4, CALM, NO SOB, TOLERATING ROOM AIR, SPO2 95%, RECEIVED MORPHINE FOR PAIN EARLIER, NO COMPLAIN OF PAIN AT THIS TIME, LEFT FA IS SECURED WITH DRESSING, OBTAINED CONSENT FOR WOUND DEBRIDEMENT FOR TOMORROW, EXPLAINED TO PATIENT BEING NPO EXCEPT MEDS AFTER MIDNIGHT, PATIENT VERBALIZED UNDERSTANDING. NEEDS ATTENDED, CALL LIGHT WITHIN REACH.
--- NOTE | 2017-06-23 20:52 | NUR ---
RN NOTES SEEN BY DR. GONZALO NAVA REGARDING SURGICAL PROCEDURE TOMORROW. MD ANSWERED QUESTIONS FROM PATIENT.
[2017-06-23] MEDS: POLYETHYLENE GLYCOL 3350 17 GM POWD.PACK PO SCH (22:00)
[2017-06-23] MEDS: MIRTAZAPINE 15 MG TABLET PO SCH (22:11)
[2017-06-23] MEDS: ATORVASTATIN 10 MG TABLET PO SCH (22:11)
--- NOTE | 2017-06-23 22:15 | NUR ---
RN NOTES REFUSED MIRALAX, DR. NAVA MADE AWARE, EXPLAINED TO PATIENT RISKS AND BENEFITS FOR CONDITION. PER PATIENT, MIRALAX MAKES HER LOSE BOWEL CONTROL.
[2017-06-24] MEDS: PIPERACILLIN /TAZOBACTAM 3.375 G in IV D5W 50 ML IV SCH ×4 (05:20→23:06)
--- NOTE | 2017-06-24 06:55 | NUR ---
RN NOTES PATIENT IS ALERT AND AWAKE, NO SOB, NO RESPIRATORY DISTRESS, NO COMPLAIN OF PAIN AT THIS TIME, NO ADVERSE CHANGE OF CONDITION DURING SHIFT, NPO EXCEPT MEDS SINCE MIDNIGHT FOR DEBRIDEMENT OF ANAL WOUND TODAY. ALL DUE MEDICATIONS GIVEN, CALL LIGHT WITHIN REACH.
[2017-06-24 07:55] LABS: BASOPHILS % (AUTO) 0.5 % (0.0-2.0); EOSINOPHILS # (AUTO) 0.2 /CMM (0.0-0.7); EOSINOPHILS % (AUTO) 3.9 % (0.0-6.0); HEMATOCRIT 38 % (33-45); HEMOGLOBIN 12.6 g/dL (11.5-14.8); LYMPHOCYTES # (AUTO) 1.5 /CMM (0.8-4.8); LYMPHOCYTES % (AUTO) 22.8 % (20.0-44.0); MEAN CORPUSCULAR HEMOGLOBIN 26 PG (26.0-33.0); MEAN CORPUSCULAR HGB CONC 33 g/dl (31.0-36.0); MEAN CORPUSCULAR VOLUME 79 fL (82-100); MONOCYTES # (AUTO) 0.6 /CMM (0.1-1.30); MONOCYTES % (AUTO) 9.9 % (2.0-12.0); NEUTROPHILS % (AUTO) 62.9 % (43.0-81.0); PLATELET COUNT (AUTO) 345 /CMM (150-450); RDW COEFFICIENT OF VARIATION 14.9 (11.5-15.0); RED BLOOD CELL COUNT(AUTO) 4.88 MIL/uL (4.0-5.2); WHITE BLOOD COUNT (AUTO) 6.4 K/uL (4.3-11.0)
[2017-06-24 07:57] VITALS: BP 125/66
[2017-06-24 08:10] LABS: ALBUMIN 3.1 g/dL (3.4-5.0); BILIRUBIN,TOTAL 0.3 mg/dL (0.2-1.0); CALCIUM, SERUM 8.8 mg/dL (8.5-10.1); CREATININE 0.9 mg/dL (0.6-1.3); POTASSIUM 4.1 mmol/L (3.5-5.1); TOTAL PROTEIN, SERUM 7.1 g/dL (6.4-8.2)
[2017-06-24] MEDS: GABAPENTIN 300 MG CAPSULE PO SCH ×2 (08:26→18:06)
[2017-06-24] MEDS: PANTOPRAZOLE 40 MG TABLET.DR PO SCH (08:26)
[2017-06-24] MEDS: CARVEDILOL 3.125 MG TABLET PO SCH ×2 (08:26→18:07)
[2017-06-24] MEDS: BACLOFEN (10 MG) 10 MG TABLET PO SCH ×2 (08:26→18:06)
[2017-06-24] MEDS: SENNOSIDES/DOCUSATE SODIUM 1 TAB TABLET PO SCH (08:27)
[2017-06-24] MEDS: METFORMIN 500 MG TABLET PO SCH ×2 (08:27→17:00)
[2017-06-24] MEDS: VENLAFAXINE XR 75 MG CAP.SR.24H PO SCH (08:32)
--- NOTE | 2017-06-24 09:00 | NUR ---
M/S RN - AM Notes Patient awake, A/O x 4, denies pain, not in any form of distress, tolerating room air. Patient currently NPO except meds for debridement of anal wound today at 15:00. All needs attended and met. Patient assisted with morning care, due meds given and tolerated well. Will continue to monitor closely.
[2017-06-24] MEDS: MORPHINE SULFATE INJ 4 MG/ML DISP.SYRIN IV PRN ×3 (12:03→21:11)
[2017-06-24] MEDS ORDERED: ANESTHESIA TRAY IN PYXIS 1 EA TRAY MC ONE (14:21)
--- NOTE | 2017-06-24 14:50 | NUR ---
M/S RN - Notes Patient sent to OR in stable condition. Pre-op checklist completed. Heplock on the left hand is patent, intact, with no signs of infiltration. Patient endorsed to OR staff accordingly.
[2017-06-24] MEDS ORDERED: LIDOCAINE 0.5% HCL 50 ML VIAL ONE (16:01)
[2017-06-24] MEDS ORDERED: BUPIVACAINE 0.25% 75 MG/30 ML VIAL ONE (16:01)
[2017-06-24] MEDS ORDERED: MIDAZOLAM HCL 2 MG/2ML VIAL ONE (16:02)
[2017-06-24] MEDS ORDERED: FENTANYL PF 100MCG/2ML AMPUL ONE ×2 (16:02→16:34)
[2017-06-24] MEDS ORDERED: METRONIDAZOLE 500MG/ NS 100ML 100 ML IV ONE (16:23)
[2017-06-24] MEDS ORDERED: GELATIN SPONGE,ABSORBABLE 1 EA SPONGE TP ONE (16:33)
[2017-06-24] MEDS ORDERED: THROMBIN (BOVINE) 5,000 UNITS VIAL TP ONE (16:33)
[2017-06-24 18:00] VITALS: BP 134/97
[2017-06-24] MEDS: ENOXAPARIN SODIUM 40 MG/0.4 ML DISP.SYRIN SQ SCH (18:06)
[2017-06-24 18:15] VITALS: BP 137/90
[2017-06-24 18:30] VITALS: BP 141/90
--- NOTE | 2017-06-24 18:41 | NUR ---
M/S RN - End Shift Notes Patient was transferred from Rm 200 to Rm 316-1, awake, alert and oriented, vitals monitored and recorded. Patient s/p debridement of anal wound, dressing in place. Patient medicated with morphine sulfate 4 mg IVP for c/o anal pain with relief. Family at bedside updated on plan of care. Will continue with current medical management.
[2017-06-24 18:45] VITALS: BP 127/80
--- NOTE | 2017-06-24 19:30 | NUR ---
MS RN NOTES: NOTED PT HAS GEL FOAM BACK WITH GAUZE IN ANAL AREA.
--- NOTE | 2017-06-24 19:30 | NUR ---
MS RN OPENING NOTES: RECEIVED PT AND IS BED A/OX4. PT IS RESTING COMFORTABLY IN BED WITH AT BEDSIDE. PT JUST FINISHED ZOSYN IV. PT HAS IV ON L HAND #22G AND IS PATENT AND INTACT. CURRENTLY S/L. CALL LIGHT WITHIN PT'S REACH. BED KEPT IN LOW, LOCKED POSITION, AND SIDE RAILS X 2 UP. NO S/S OF DISTRESS NOTED AT THIS TIME. NO SOB NOTED. PT VERBALIZED THAT SHE DOES NOT WANT THE SCHEDULED MIRALAX TONIGHT SINCE SHE IS S/P WOUND DEBRIDEMENT OF ANAL WOUND. EXPLAINED TO PT BENEFITS OF MIRALAX X3 BUT PT STILL DOES NOT WANT IT. WILL CONTINUE TO MONITOR PT.
[2017-06-24 20:00] VITALS: BP 110/77
[2017-06-24] MEDS: ATORVASTATIN 10 MG TABLET PO SCH (21:11)
[2017-06-24] MEDS: MIRTAZAPINE 15 MG TABLET PO SCH (21:11)
--- NOTE | 2017-06-24 21:11 | NUR ---
MS RN NOTES: PT STILL REFUSING MIRALAX AFTER OFFERED MEDICATION. PT SAID SHE HAD S/P DEBRIDEMENT OF ANAL AREA SO SHE DOES NOT WANT TO HAVE A BOWEL MOVEMENT FOR IT WILL PROVOKE PAIN. PT VERBALIZED THAT SHE IS HAVING 5/10 ANAL AREA PAIN. PT WAS ADMINISTERED MORPHINE 4MG IV. WILL CONTINUE TO MONITOR PT.
[2017-06-24] MEDS: POLYETHYLENE GLYCOL 3350 17 GM POWD.PACK PO SCH (21:20)
[2017-06-25 01:02] VITALS: BP 115/69
[2017-06-25] MEDS: MORPHINE SULFATE INJ 4 MG/ML DISP.SYRIN IV PRN ×6 (01:07→23:53)
--- NOTE | 2017-06-25 01:07 | NUR ---
MS RN NOTES: PT REQUESTED FOR MORPHINE FOR SHE FEELS LIKE SHE WILL HAVE A BOWEL MOVEMENT AND WANTS IT BEFORE SHE DOES HAVE ONE TO SUPPRESS THE PAIN. V/S STABLE. WILL CONTINUE TO MONITOR PT.
[2017-06-25] MEDS: PIPERACILLIN /TAZOBACTAM 3.375 G in IV D5W 50 ML IV SCH ×4 (05:06→23:08)
--- NOTE | 2017-06-25 06:43 | NUR ---
MS RN CLOSING NOTES: ALL NEEDS WERE ATTENDED AND ANTICIPATED FOR. PT IS ASLEEP IN BED AND IS A/OX4. PT HAS IV ON L HAND #22G AND IS PATENT AND INTACT. CURRENTLY S/L. CALL LIGHT WITHIN PT'S REACH. BED KEPT IN LOW, LOCKED POSITION, AND SIDE RAILS X 2 UP. NO S/S OF DISTRESS NOTED AT THIS TIME. NO SOB NOTED. PT STILL HAS GEL FOAM PACK IN ANAL AREA INTACT. WILL ENDORSE TO AM NURSE FOR OUMAR.
--- NOTE | 2017-06-25 07:30 | NUR ---
RECEIVED PT. ALERT AND ORIENTED X4 NO COMPLAINTS OFFERED.INSTRUCTED ON NEEDS FOR LAXATIVES PT. DID NOT WANT MIRALAX LAST SHIFT.
[2017-06-25 08:00] VITALS: BP 141/96
[2017-06-25] MEDS: GABAPENTIN 300 MG CAPSULE PO SCH ×2 (08:49→17:14)
[2017-06-25] MEDS: VENLAFAXINE XR 75 MG CAP.SR.24H PO SCH (08:49)
[2017-06-25] MEDS: BACLOFEN (10 MG) 10 MG TABLET PO SCH ×2 (08:50→17:14)
[2017-06-25] MEDS: PANTOPRAZOLE 40 MG TABLET.DR PO SCH (08:50)
[2017-06-25] MEDS: CARVEDILOL 3.125 MG TABLET PO SCH ×2 (08:50→17:14)
[2017-06-25] MEDS: METFORMIN 500 MG TABLET PO SCH ×2 (08:50→17:14)
[2017-06-25] MEDS: SENNOSIDES/DOCUSATE SODIUM 1 TAB TABLET PO SCH (08:50)
--- NOTE | 2017-06-25 10:10 | NUR ---
MEDICATED FOR RECTAL PAIN WITH MORPHINE 4 MG IV.THEN SHORTLY AFTER PT. ENDORSED TO ANOTHER BRAD PHILLIP.CENTRAL SERVICE CALLED SEVERAL TIMES TO OBTAIN A SITZ BATH FOR PT.
--- NOTE | 2017-06-25 10:30 | NUR ---
RN MS NOTES PATIENT ALERT AND ORIENTED, NO RESPIRATORY DISTRESS NOTED, NEEDS ATTENDED AND MET, CALL LIGHT WITHIN REACH, WILL CONTINUE TO MONITOR.
[2017-06-25 16:00] VITALS: BP 150/99
[2017-06-25] MEDS: ENOXAPARIN SODIUM 40 MG/0.4 ML DISP.SYRIN SQ SCH (17:22)
--- NOTE | 2017-06-25 19:01 | NUR ---
RN MS NOTES PATIENT ALERT AND ORIENTED X3, PATIENT CALM AND PLEASANT, NO CONCERNS AT THIS TIME, NO SHORTNESS OF BREATH, NO RESPIRATORY DISTRESS AT THIS TIME, SITZ BATH USED BY PATIENT AND PATIENT FEELS COMFORT AFTER USE, DENIES PAIN OR DISCOMFORT AT THIS TIME, NEEDS ATTENDED AND MET, CALL LIGHT WITHIN REACH, WILL ENDORSE TO BOBBIN DOFFER FOR OUMAR.
--- NOTE | 2017-06-25 19:53 | NUR ---
RN NOTES PATIENT IN BED, ALERT AND ORIENTED X4, CALM, NO SOB, NO RESPIRATORY DISTRESS, TOLERATING ROOM AIR, SPO2 96%, PER PATIENT RECEIVED PAIN MEDICATION, TOLERATING PAIN TO RECTUM AT 3/10, LEFT HAND SALINE LOCK IS PATENT AND SECURED WITH DRESSING. NEEDS ATTENDED, CALL LIGHT WITHIN REACH.
[2017-06-25 20:00] VITALS: BP 114/79
[2017-06-25] MEDS: MIRTAZAPINE 15 MG TABLET PO SCH (21:15)
[2017-06-25] MEDS: ATORVASTATIN 10 MG TABLET PO SCH (21:15)
[2017-06-25] MEDS: POLYETHYLENE GLYCOL 3350 17 GM POWD.PACK PO SCH (21:19)
--- NOTE | 2017-06-25 21:20 | NUR ---
RN NOTES REFUSED MIRALAX, PER PATIENT MAKES HER BOWEL VERY LOOSE
--- NOTE | 2017-06-25 22:55 | NUR ---
RN NOTES GIVEN REPORT TO BRAD VO FOR CONTINUITY OF CARE
--- NOTE | 2017-06-25 23:00 | NUR ---
MS/RN OPENING NOTES PT RECEIVED FROM RN, SABRINA. PT A/OX4. ON ROOM AIR, DENIES SOB. BREATHING EVEN AND UNLABORED. IN NO APPARENT DISTRESS. NOTES RECTAL PAIN 02/10, REQUESTING PAIN MEDS WHEN DUE. IV TO LEFT HAND PATENT AND INTACT. BED IN LOW/LOCKED POSITION WITH CALL LIGHT IN REACH. SIDE RAILS UPX2. WILL CONTINUE TO MONITOR
--- NOTE | 2017-06-26 05:30 | NUR ---
MS/RN NOTES PT AWAKE, UPSET AND CRYING. EMOTIONAL SUPPORT PROVIDED. PT EXPRESSED THAT SHE IS IN PAIN, AND IS FRUSTRATED THAT DR. NAVA DIDNT COME TO SEE HER YESTERDAY. FEELS LIKE SHE IS IN "LIMBO". WANTS TO KNOW MORE DETAILS ABOUT HER PLAN OF CARE AND WOUND CARE. REINFORCED THAT I WILL RELAY CONCERNS TO DAY SHIFT RN TO CONSULT WITH MD.
[2017-06-26] MEDS: MORPHINE SULFATE INJ 4 MG/ML DISP.SYRIN IV PRN ×2 (05:35→07:37)
[2017-06-26] MEDS: PIPERACILLIN /TAZOBACTAM 3.375 G in IV D5W 50 ML IV SCH ×3 (06:00→18:00)
--- NOTE | 2017-06-26 06:54 | NUR ---
MS/RN CLOSING NOTES PT AWAKE, SEMI FOWLERS POSITION. A/OX4. ON ROOM AIR,BREATHING EVEN AND UNLABORED. PAIN RATED <5/10, APPEARS COMFORTABLE AT THIS TIME. IV TO RIGHT HAND PATENT AND INTACT. MADE PT COMFORTABLE POSSIBLE. BED IN LOW/LOCKED POSITION WITH CALL LIGHT IN REACH. SIDE RAILS UPX2. WILL ENDORSE TO AM SHIFT OUMAR AND THAT PATENT WOULD LIKE TO TALK TO MD ABOUT UPDATES REGARDING PLAN OF CARE AND WOUND CARE/QUESTIONS.
[2017-06-26] MEDS: PANTOPRAZOLE 40 MG TABLET.DR PO SCH (07:35)
--- NOTE | 2017-06-26 07:50 | NUR ---
RN OPENINGS NOTES RECEIVED PT. PT IS STABLE AND RESTING IN BED. A/OX4. NO S/S OF RESPIRATORY DISTRESS/SOB. PT C/O PAIN 6/10 IN PERINEAL AREA. PT HAS C/O LOOSE STOOLS FOR THE LAST 24 HOURS, LAXATIVE HELD. IV ACCESS LOCATED ON LEFT HAND 22G, SL. PT IS REQUESTING TO SPEAK WITH SURGERY TO CLARIFY QUESTIONS, WILL F/U WITH MD. SAFETY MEASURES IN PLACE, CALL LIGHT WITHIN REACH. WILL CONTINUE TO MONITOR.
[2017-06-26 08:00] VITALS: BP 127/78
[2017-06-26] MEDS: METFORMIN 500 MG TABLET PO SCH ×2 (08:34→16:52)
[2017-06-26] MEDS: GABAPENTIN 300 MG CAPSULE PO SCH ×2 (08:34→16:52)
[2017-06-26] MEDS: VENLAFAXINE XR 75 MG CAP.SR.24H PO SCH (08:34)
[2017-06-26] MEDS: BACLOFEN (10 MG) 10 MG TABLET PO SCH ×2 (08:34→16:48)
[2017-06-26] MEDS: CARVEDILOL 3.125 MG TABLET PO SCH ×2 (08:35→16:52)
[2017-06-26] MEDS: SENNOSIDES/DOCUSATE SODIUM 1 TAB TABLET PO SCH (08:43)
[2017-06-26 16:00] VITALS: BP 134/91
[2017-06-26] MEDS: ACETAMINOPHEN 325 MG TABLET PO SCH (16:49)
[2017-06-26] MEDS: IBUPROFEN 200 MG TABLET PO SCH (16:51)
[2017-06-26] MEDS: ENOXAPARIN SODIUM 40 MG/0.4 ML DISP.SYRIN SQ SCH (18:30)
--- NOTE | 2017-06-26 18:56 | NUR ---
RN CLOSING NOTES PT IS AWAKE, RESTING QUIETLY IN BED. A/OX4. NO S/S OF SOB, NO C/O PAIN AT THIS TIME. IV ACCESS REMOVED DUE TO INFILTRATION. ALL IV MEDS INCLUDING ABX CONVERTED TO PO. ALL PT NEEDS ANTICIPATED AND MET. BED LOWERED TO LOWEST POSITION, SIDERAILS RAISED X2. SAFETY MEASURES IN PLACE, CALL LIGHT WITHIN REACH. WILL ENDORSE TO DISABILITY INSURANCE CLAIM EXAMINER FOR OUMAR.
[2017-06-26] MEDS ORDERED: LIDOCAINE 2% JEL UROJET 10 ML MM ONE (19:30)
--- NOTE | 2017-06-26 19:30 | NUR ---
MS/RN OPENING NOTES PT ASLEEP, DAUGHTER AT BEDSIDE. ON ROOM AIR, BREATHING EVEN AND UNLABORED. RESTING COMFORTABLY. NO S/S OF DISTRESS OR PAIN NOTED. NO IV ACCESS AT THIS TIME. AWARE AND CHANGED ALL IV ABX TO PO PER DAY SHIFT RN. BED IN LOW/LOCKED POSITION WITH CALL LIGHT IN REACH. SIDE RAILS UPX2. WILL CONTINUE TO MONITOR
[2017-06-26 20:00] VITALS: BP 115/77
[2017-06-26] MEDS: ATORVASTATIN 10 MG TABLET PO SCH (21:06)
[2017-06-26] MEDS: MIRTAZAPINE 15 MG TABLET PO SCH (21:06)
[2017-06-26] MEDS: METRONIDAZOLE 500 MG TABLET PO SCH (21:06)
[2017-06-26] MEDS: POLYETHYLENE GLYCOL 3350 17 GM POWD.PACK PO SCH (21:06)
--- NOTE | 2017-06-26 21:10 | NUR ---
MS/RN NOTES PT REFUSING MIRALAX. PER PT, STILL HAVING LOOSE STOOLS
--- NOTE | 2017-06-26 22:31 | NUR ---
MS/RN NOTES PT REFUSING PICTURES TONIGHT. EDUCATED ON HOSPITAL PROTOCOL. VERBALIZED UNDERSTANDING. WILL TRY AGAIN LATER
[2017-06-27] MEDS: IBUPROFEN 200 MG TABLET PO SCH ×2 (01:06→08:34)
[2017-06-27] MEDS: ACETAMINOPHEN 325 MG TABLET PO SCH ×2 (01:06→08:34)
[2017-06-27] MEDS: METRONIDAZOLE 500 MG TABLET PO SCH ×2 (06:17→12:19)
--- NOTE | 2017-06-27 07:20 | NUR ---
MS/RN CLOSING NOTES PT ASLEEP, EASILY AROUSABLE TO NAME. A/OX4, ON ROOM AIR BREATHING EVEN AND UNLABORED. DENIES SOB, PAIN 0/10 AT THIS TIME. NO IV ACCESS, MD AWARE. MADE PT COMFORTABLE DURING SHIFT. ALL NEEDS MET. NO SIGNIFICANT CHANGES OVERNIGHT. PT REFUSED PHOTOS. BED IN LOW/LOCKED POSITION WITH CALL LIGHT IN REACH. SIDE RAILS XUP2. ENDORSED TO AM SHIFT OUMAR.
--- NOTE | 2017-06-27 07:51 | NUR ---
MS RN: OPENING NOTE RECEIVED PT A/OX4. ON MS. BRP. AMBULATES WITH OUT ASSIST. ON CCHO DIET. NO IV NOTED. MD AWARE. NO IV NEEDED PER MD. ALL MEDICATIONS PO. NO DISTRESS NOTED. NO SOB NOTED. ON ROOM AIR SATING AT 98%. PAIN CONTROLLED WITH PAIN MEDICATIONS. RESTING COMFORTABLY IN BED. CALL LIGHT WITHIN REACH.
[2017-06-27 08:00] VITALS: BP 121/80
[2017-06-27 08:34] VITALS: BP 121/80
[2017-06-27] MEDS: BACLOFEN (10 MG) 10 MG TABLET PO SCH (08:34)
[2017-06-27] MEDS: CARVEDILOL 3.125 MG TABLET PO SCH (08:34)
[2017-06-27] MEDS: GABAPENTIN 300 MG CAPSULE PO SCH ×2 (08:34→12:19)
[2017-06-27] MEDS: METFORMIN 500 MG TABLET PO SCH (08:34)
[2017-06-27] MEDS: VENLAFAXINE XR 75 MG CAP.SR.24H PO SCH (08:34)
[2017-06-27] MEDS: PANTOPRAZOLE 40 MG TABLET.DR PO SCH (08:34)
[2017-06-27] MEDS: SENNOSIDES/DOCUSATE SODIUM 1 TAB TABLET PO SCH (08:35)
[2017-06-27] MEDS ORDERED: LEVO500T75 PO (11:36)
[2017-06-27] MEDS ORDERED: HYDR-552 PO (11:36)
[2017-06-27] MEDS ORDERED: METR500T PO (11:36)
--- NOTE | 2017-06-27 12:56 | NUR ---
MS RN: DISCHARGE NOTE PT D/C HOME WITH SELF CARE. NO DISTRESS NOTED. NO PAIN NOTED. TOOK ALL MEDICATIONS ON TIME. NO ADVERSE REACTIONS NOTED. NO IV SITE NOTED. MD AWARE. REFUSED TO TAKE PICTURES DUE TO FEELING EMBARRASSED DUE TO THE SITE. ALL DISCHARGE INFORMATION PROVIDED. COPIES GIVEN TO PT. ALL VALUABLES ACCOUNTED FOR. LEFT VIA PRIVATE CAR WITH DAUGHTER. AMBULATORY.
== END 2017-06-27 12:30 | disposition home or self-care (01) | DRG 857 ==
LOC: ER 12:28 → MEDSG2 18:02 → MED 06-24 17:41
PROVIDERS: ADMIT Internal Medicine; ATTEND Internal Medicine
PROC: 0JB70ZZ Excision of Back Subcutaneous Tissue and Fascia, Open Approach (ICD-10-PCS; principal; 2017-06-24 16:26)
DX: T81.4XXA Infection following a procedure, initial encounter (principal); K61.0 Anal abscess; D64.9 Anemia, unspecified; E03.9 Hypothyroidism, unspecified; E11.9 Type 2 diabetes mellitus without complications; L03.818 Cellulitis of other sites; E78.5 Hyperlipidemia, unspecified; K62.89 Other specified diseases of anus and rectum; I10 Essential (primary) hypertension; F32.9 Major depressive disorder, single episode, unspecified; K21.9 Gastro-esophageal reflux disease without esophagitis; K64.9 Unspecified hemorrhoids; G89.18 Other acute postprocedural pain; Y83.8 Other surgical procedures as the cause of abnormal reaction of the patient, or of later complication, without mention of misadventure at the time of the procedure; Y92.009 Unspecified place in unspecified non-institutional (private) residence as the place of occurrence of the external cause; Z79.84 Long term (current) use of oral hypoglycemic drugs; Z79.899 Other long term (current) drug therapy
CPT/HCPCS: 36415; 71010-TC; 80048-TC; 80053-TC; 82962-TC; 83735-TC; 84100-TC; 85025-TC; 85730-TC; 86850-TC; 87081-TC; A4217; A4606; A6253; A6402; A6407; J0690; J1100; J1650; J1885; J2250; J2270; J2405; J2543; J2704; J3010; J3490; J7030; J7050; J7060; Q9967; Z7610

== ENCOUNTER 2017-09-22 10:37 | Outpatient (CLI) | payer BC ==
[~2017-09-22 10:37] MED LIST changes: -ASPI-1169 PO; -ATEN25TA PO; +CARV3.122 PO; +HYDR-552 PO; -LEVO25TA7 PO; +LEVO500T75 PO; +METF500T4 PO; -METO25TA20 PO; +METR500T PO; +MIRT15TA7 PO; -MIRT7.5T10 PO
[2017-09-22 11:32] LABS: APPEARANCE,URINE CLEAR (CLEAR); BASOPHILS # (AUTO) 0.1 /CMM (0.0-0.2); BASOPHILS % (AUTO) 1.4 % (0.0-2.0); BILIRUBIN,URINE NEGATIVE (NEGATIVE); BLOOD, URINE NEGATIVE Ery/uL (NEGATIVE); COLOR,URINE YELLOW (YELLOW); EOSINOPHILS # (AUTO) 0.2 /CMM (0.0-0.7); EOSINOPHILS % (AUTO) 3.2 % (0.0-6.0); HEMATOCRIT 41 % (33-45); HEMOGLOBIN 13.4 g/dL (11.5-14.8); KETONES,URINE NEGATIVE (NEGATIVE); LEUKOCYTE ESTERASE ,URINE NEGATIVE (NEGATIVE); LYMPHOCYTES # (AUTO) 1.8 /CMM (0.8-4.8); LYMPHOCYTES % (AUTO) 26.5 % (20.0-44.0); MEAN CORPUSCULAR HEMOGLOBIN 25 PG (26.0-33.0); MEAN CORPUSCULAR HGB CONC 33 g/dl (31.0-36.0); MEAN CORPUSCULAR VOLUME 77 fL (82-100); MONOCYTES # (AUTO) 0.6 /CMM (0.1-1.30); NEUTROPHILS # (AUTO) 4.1 /CMM (1.8-8.9); NEUTROPHILS % (AUTO) 59.9 % (43.0-81.0); NITRITE, URINE NEGATIVE (NEGATIVE); PH,URINE 6.5 (5.0-8.0); PLATELET COUNT (AUTO) 292 /CMM (150-450); PROTEIN,URINE TRACE mg/dl (NEGATIVE); RDW COEFFICIENT OF VARIATION 15.2 (11.5-15.0); UGLUCOSE NEGATIVE (NEGATIVE); UROBILINOGEN,URINE 0.2 EU/dL (0.2); WHITE BLOOD COUNT (AUTO) 6.8 K/uL (4.3-11.0)
[2017-09-22 11:50] LABS: ALBUMIN 3.9 g/dL (3.4-5.0); BILIRUBIN,TOTAL 0.3 mg/dL (0.2-1.0); CALCIUM, SERUM 9.1 mg/dL (8.5-10.1); CREATININE 0.8 mg/dL (0.6-1.3); TOTAL PROTEIN, SERUM 7.7 g/dL (6.4-8.2)
[2017-09-22 11:52] LABS: BACTERIA,URINE Rare /HPF (None Seen); RBC,URINE 0-2 /HPF (0-2)
[2017-09-22 11:53] LABS: MUCUS,URINE Moderate /LPF (None Seen); SQUAMOUS EPITHELIAL CELL,UR Few /HPF (None Seen)
[2017-09-22 11:54] LABS: THYROID STIMULATING HORMONE 2.888 uIU/mL (0.358-3.74)
== END 2017-09-22 23:59 | disposition home or self-care (01) ==
LOC: LAB 10:37
PROVIDERS: ATTEND Family Medicine
DX: Z00.01 Encounter for general adult medical examination with abnormal findings (principal); Z11.59 Encounter for screening for other viral diseases; R79.89 Other specified abnormal findings of blood chemistry
CPT/HCPCS: 36415; 80053-TC; 80061-TC; 81000-TC; 82306; 84439-TC; 84443-TC; 85025-TC; 86803

== ENCOUNTER → 2017-11-09 | Outpatient (CLI) | payer BC ==
[~2017-11-09] MED LIST changes: +METF-440 PO; -METF500T4 PO
[2017-11-09 10:24] LABS: BASOPHILS % (AUTO) 0.8 % (0.0-2.0); EOSINOPHILS % (AUTO) 2.6 % (0.0-6.0); HEMATOCRIT 41 % (33-45); HEMOGLOBIN 13.3 g/dL (11.5-14.8); LYMPHOCYTES # (AUTO) 1.8 /CMM (0.8-4.8); LYMPHOCYTES % (AUTO) 30.7 % (20.0-44.0); MEAN CORPUSCULAR HGB CONC 33 g/dl (31.0-36.0); MEAN CORPUSCULAR VOLUME 76 fL (82-100); MONOCYTES # (AUTO) 0.5 /CMM (0.1-1.30); MONOCYTES % (AUTO) 9.5 % (2.0-12.0); NEUTROPHILS # (AUTO) 3.2 /CMM (1.8-8.9); NEUTROPHILS % (AUTO) 56.4 % (43.0-81.0); PLATELET COUNT (AUTO) 285 /CMM (150-450); RDW COEFFICIENT OF VARIATION 14.9 (11.5-15.0); WHITE BLOOD COUNT (AUTO) 5.8 K/uL (4.3-11.0)
[2017-11-09 10:29] LABS: ALBUMIN 3.9 g/dL (3.4-5.0); BILIRUBIN,TOTAL 0.2 mg/dL (0.2-1.0); CALCIUM, SERUM 9.3 mg/dL (8.5-10.1); CREATININE 0.9 mg/dL (0.6-1.3); POTASSIUM 4.3 mmol/L (3.5-5.1); TOTAL PROTEIN, SERUM 7.8 g/dL (6.4-8.2)
[2017-11-09 10:38] LABS: THYROID STIMULATING HORMONE 4.078 uIU/mL (0.358-3.74)
== END | disposition home or self-care (01) ==
LOC: LAB 09:40
PROVIDERS: ATTEND Family Medicine
DX: E78.2 Mixed hyperlipidemia (principal); E55.9 Vitamin D deficiency, unspecified
CPT/HCPCS: 36415; 80053-TC; 80061-TC; 82306; 84439-TC; 84443-TC; 85025-TC

== ENCOUNTER 2017-12-20 01:57 | Emergency (ER) | payer BC ==
--- NOTE | 2017-12-20 07:11 | NUR ---
[facility] COMPUTER CHARTIN DOWN. REFER TO PAPER CHARTING
--- NOTE | 2017-12-20 07:45 | NUR ---
IV removed. Catheter intact and site benign. Pressure and 4x4 applied to site. No bleeding noted.
--- NOTE | 2017-12-20 07:48 | NUR ---
Patient discharged to home in stable condition. Written and verbal after care instructions given. Patient verbalizes understanding of instruction.
[2017-12-20 07:49] VITALS: BP 140/72
[2017-12-20 08:44] LABS: HEMATOCRIT 40 % (33-45); HEMOGLOBIN 13.2 g/dL (11.5-14.8); MEAN CORPUSCULAR VOLUME 79 fL (82-100)
[2017-12-20 08:45] LABS: BASOPHILS # (AUTO) 0.1 /CMM (0.0-0.2); BASOPHILS % (AUTO) 1.3 % (0.0-2.0); EOSINOPHILS % (AUTO) 2.5 % (0.0-6.0); LYMPHOCYTES # (AUTO) 1.7 /CMM (0.8-4.8); LYMPHOCYTES % (AUTO) 23.7 % (20.0-44.0); MEAN CORPUSCULAR HGB CONC 33 g/dl (31.0-36.0); MONOCYTES # (AUTO) 0.7 /CMM (0.1-1.30); MONOCYTES % (AUTO) 9.8 % (2.0-12.0); NEUTROPHILS # (AUTO) 4.4 /CMM (1.8-8.9); NEUTROPHILS % (AUTO) 62.7 % (43.0-81.0); PLATELET COUNT (AUTO) 252 /CMM (150-450); RDW COEFFICIENT OF VARIATION 14.8 (11.5-15.0)
[2017-12-20 09:17] LABS: CALCIUM, SERUM 8.8 mg/dL (8.5-10.1); POTASSIUM 3.8 mmol/L (3.5-5.1)
[2017-12-20 09:18] LABS: ALBUMIN 3.6 g/dL (3.4-5.0); BILIRUBIN,TOTAL 0.2 mg/dL (0.2-1.0); CREATININE 0.8 mg/dL (0.6-1.3); TOTAL PROTEIN, SERUM 7.4 g/dL (6.4-8.2)
== END 2017-12-20 07:50 | disposition home or self-care (01) ==
LOC: ER 01:57
DX: R07.89 Other chest pain (principal); I10 Essential (primary) hypertension; E78.00 Pure hypercholesterolemia, unspecified; E11.9 Type 2 diabetes mellitus without complications; E78.5 Hyperlipidemia, unspecified; Z86.2 Personal history of diseases of the blood and blood-forming organs and certain disorders involving the immune mechanism; Z79.84 Long term (current) use of oral hypoglycemic drugs
CPT/HCPCS: 36415; 70450-TC; 71045-TC; 80053-TC; 84484-TC; 85025-TC

== ENCOUNTER 2018-02-16 10:26 | Outpatient (CLI) | payer BC ==
[~2018-02-16 10:26] MED LIST changes: -METF-440 PO; +METF500T6 PO
[2018-02-16 11:26] LABS: BASOPHILS % (AUTO) 0.6 % (0.0-2.0); EOSINOPHILS % (AUTO) 2.1 % (0.0-6.0); HEMATOCRIT 41 % (33-45); HEMOGLOBIN 13.2 g/dL (11.5-14.8); LYMPHOCYTES % (AUTO) 27.9 % (20.0-44.0); MEAN CORPUSCULAR HEMOGLOBIN 25 PG (26.0-33.0); MEAN CORPUSCULAR HGB CONC 32 g/dl (31.0-36.0); MEAN CORPUSCULAR VOLUME 79 fL (82-100); MONOCYTES # (AUTO) 0.6 /CMM (0.1-1.30); MONOCYTES % (AUTO) 8.3 % (2.0-12.0); NEUTROPHILS # (AUTO) 4.3 /CMM (1.8-8.9); NEUTROPHILS % (AUTO) 61.1 % (43.0-81.0); PLATELET COUNT (AUTO) 300 /CMM (150-450); RDW COEFFICIENT OF VARIATION 15.7 (11.5-15.0); RED BLOOD CELL COUNT(AUTO) 5.21 MIL/uL (4.0-5.2)
[2018-02-16 11:56] LABS: THYROID STIMULATING HORMONE 3.419 uIU/mL (0.358-3.74)
[2018-02-16 12:19] LABS: ALBUMIN 3.8 g/dL (3.4-5.0); BILIRUBIN,TOTAL 0.3 mg/dL (0.2-1.0); CALCIUM, SERUM 8.7 mg/dL (8.5-10.1); CREATININE 0.9 mg/dL (0.6-1.3); POTASSIUM 4.3 mmol/L (3.5-5.1); TOTAL PROTEIN, SERUM 7.6 g/dL (6.4-8.2)
== END 2018-02-16 23:59 | disposition home or self-care (01) ==
LOC: LAB 10:26
PROVIDERS: ATTEND Family Medicine
DX: E78.5 Hyperlipidemia, unspecified (principal); E55.9 Vitamin D deficiency, unspecified; M19.90 Unspecified osteoarthritis, unspecified site
CPT/HCPCS: 36415; 80053-TC; 80061-TC; 82306; 84439-TC; 84443-TC; 85025-TC; 86431-TC

== ENCOUNTER 2018-03-09 10:20 | Outpatient (CLI) | payer BC ==
[2018-03-09 11:11] LABS: CREATININE 0.9 mg/dL (0.6-1.3)
[2018-03-09] MEDS ORDERED: IV NS 0.9% 250 ML IV ONE (11:29)
[2018-03-09] MEDS ORDERED: CT SWABBABLE VALVE TRANS SET 1 EA INFUS.SET MC ONE (11:29)
[2018-03-09] MEDS ORDERED: IOHEXOL-350 100 ML VIAL IV ONE (11:29)
== END 2018-03-09 23:59 | disposition home or self-care (01) ==
LOC: LAB 10:20
PROVIDERS: ATTEND Family Medicine
DX: K80.20 Calculus of gallbladder without cholecystitis without obstruction (principal); J45.909 Unspecified asthma, uncomplicated; E11.9 Type 2 diabetes mellitus without complications; F41.9 Anxiety disorder, unspecified
CPT/HCPCS: 36415; 71275; 82565; 84520; J7050; Q9967

== ENCOUNTER 2019-02-21 10:33 | Outpatient (CLI) | payer BC ==
[~2019-02-21 10:33] MED LIST changes: +HYDR-4384 PO; -HYDR-552 PO; +METF-440 PO; -METF500T6 PO; -OMEP20CA10 PO; +OMEP20CA11 PO
== END 2019-02-21 23:59 | disposition home or self-care (01) ==
LOC: RAD 10:33
PROVIDERS: ATTEND Family Medicine
DX: M18.9 Osteoarthritis of first carpometacarpal joint, unspecified (principal); M77.8 Other enthesopathies, not elsewhere classified; M25.431 Effusion, right wrist; M25.432 Effusion, left wrist; J45.909 Unspecified asthma, uncomplicated; E11.9 Type 2 diabetes mellitus without complications
CPT/HCPCS: 73110

== ENCOUNTER 2019-05-03 10:56 | Outpatient (CLI) | payer BC | END 2019-05-03 23:59 | disposition home or self-care (01) | LOC: MRI 10:56 | PROVIDERS: ATTEND Family Medicine | DX: M50.321 Other cervical disc degeneration at C4-C5 level (principal); M48.02 Spinal stenosis, cervical region; M25.78 Osteophyte, vertebrae; M12.88 Other specific arthropathies, not elsewhere classified, other specified site | CPT/HCPCS: 72141-TC ==

== ENCOUNTER 2019-07-25 11:29 | Inpatient (IN) | payer BC, OTHER ==
[~2019-07-25] VITALS: Ht 154.9 cm; Wt 70.8 kg
[~2019-07-25 11:29] MED LIST changes: -OMEP20CA11 PO; +OMEP20CA15 PO
[2019-07-25] MEDS ORDERED: IV NS 0.9% 1,000 ML BAG IV ONE (12:30)
--- NOTE | 2019-07-25 12:30 | NUR ---
BIB DAUGHTER 58 YEAR OLD FEMALE Sent by Dr. Martinez for SOB, Weakness, and r shoulder pain. ALERT AND ORIENTED X3, BREATHING EVEN AND UNLABORED WITH NO DISTRESS NOTED. SKIN INTACT. WAITING TO BE SEEN BY
[2019-07-25 12:34] LABS: BASOPHILS # (AUTO) 0.1 /CMM (0.0-0.2); BASOPHILS % (AUTO) 1.2 % (0.0-2.0); EOSINOPHILS % (AUTO) 1.8 % (0.0-6.0); HEMATOCRIT 39 % (33-45); HEMOGLOBIN 12.6 g/dL (11.5-14.8); LYMPHOCYTES % (AUTO) 30.5 % (20.0-44.0); MEAN CORPUSCULAR HGB CONC 32 g/dl (31.0-36.0); MEAN CORPUSCULAR VOLUME 77 fL (82-100); MONOCYTES # (AUTO) 0.6 /CMM (0.1-1.30); MONOCYTES % (AUTO) 9.5 % (2.0-12.0); NEUTROPHILS # (AUTO) 3.8 /CMM (1.8-8.9); PLATELET COUNT (AUTO) 273 /CMM (150-450); RED BLOOD CELL COUNT(AUTO) 5.09 MIL/uL (4.0-5.2); WHITE BLOOD COUNT (AUTO) 6.7 K/uL (4.3-11.0)
--- NOTE | 2019-07-25 12:34 | NUR ---
laborer poultry hatchery at bedside
--- NOTE | 2019-07-25 12:34 | NUR ---
radio board operator at bedside to take pt for ct scan
[2019-07-25 12:46] LABS: CALCIUM, SERUM 9.3 mg/dL (8.5-10.1); CARBON DIOXIDE 26 mmol/L (21-32); CHLORIDE 103 mmol/L (98-107); CREATININE 0.8 mg/dL (0.6-1.3); GLUCOSE 86 mg/dL (74-106); POTASSIUM 3.9 mmol/L (3.5-5.1); SODIUM SERUM 137 mmol/L (136-145); UREA NITROGEN, BLOOD 16 mg/dL (7-18)
[2019-07-25 12:51] LABS: ALANINE AMINOTRANSFERASE 31 U/L (12-78); ALBUMIN 3.9 g/dL (3.4-5.0); ALKALINE PHOSPHATASE 125 U/L (46-116); ASPARTATE AMINOTRANSFERASE 23 U/L (15-37); BILIRUBIN,DIRECT 0.1 mg/dL (0.0-0.2); BILIRUBIN,TOTAL 0.3 mg/dL (0.2-1.0); TOTAL PROTEIN, SERUM 7.6 g/dL (6.4-8.2)
--- NOTE | 2019-07-25 13:05 | NUR ---
SUBMITTED MOVE SHEET & CALLED FOR TELE BED
[2019-07-25 13:07] LABS: D-DIMER 0.23 mg/L(FEU (0.17-0.50)
[2019-07-25] MEDS ORDERED: OLME5TAB6 PO (13:34)
[2019-07-25] MEDS ORDERED: ROSU5TAB13 PO (13:34)
[2019-07-25] MEDS ORDERED: BUSP10TA3 PO (13:34)
[2019-07-25] MEDS ORDERED: LEVO25TA2 PO (13:34)
[2019-07-25] MEDS ORDERED: ERGO500014 PO (13:34)
--- NOTE | 2019-07-25 13:43 | NUR ---
GOT BED 316
--- NOTE | 2019-07-25 14:30 | NUR ---
MRI CHECKLIST DONE AT BEDSIDE
--- NOTE | 2019-07-25 14:39 | NUR ---
FOOT DRILL OPERATOR BEDSIDE TO TAKE PT FOR MRI
[2019-07-25] MEDS ORDERED: HOME MED MISCELLANEOUS XX SCH (15:00)
--- NOTE | 2019-07-25 15:01 | NUR ---
report given to inderjit for brielle
[2019-07-25] MEDS ORDERED: hydrALAZINE HCL IV 20 MG VIAL IV PRN (15:30)
[2019-07-25] MEDS ORDERED: DEXTROSE 50%-WATER 50 ML DISP.SYRIN IV PRN (15:30)
[2019-07-25] MEDS ORDERED: ACETAMINOPHEN 325 MG TABLET PO PRN (15:30)
[2019-07-25] MEDS ORDERED: INSULIN REGULAR, HUMAN 100 UNIT/ML 3 ML VIAL SQ PRN (15:30)
--- NOTE | 2019-07-25 15:42 | NUR ---
PT WENT TO M/S FLOOR AFTER MRI. PT IS STABLE WITH NO DISTRESS
[2019-07-25 15:51] LABS: THYROID STIMULATING HORMONE 2.997 uIU/mL (0.358-3.74)
[2019-07-25 16:40] VITALS: BP 143/99
[2019-07-25] MEDS: CARVEDILOL 3.125 MG TABLET PO SCH (16:52)
[2019-07-25] MEDS: BACLOFEN (10 MG) 10 MG TABLET PO SCH (16:52)
[2019-07-25] MEDS: ENOXAPARIN SODIUM 40 MG/0.4 ML DISP.SYRIN SQ SCH (16:53)
[2019-07-25] MEDS: BLOOD SUGAR DIAGNOSTIC 1 EACH STRIP IN SCH ×2 (17:08→21:38)
--- NOTE | 2019-07-25 17:11 | NUR ---
ROLLER MACHINE OPERATOR NOTES PATIENT SEEN AND EXMAINED BY DR. HAHN, NEURO WITH ORDERS FOR D/I LIPITOR 10 AND NEW ORDER FOR LIPITOR 20 MG PO QHS,, CARRIED OUT.
[2019-07-25] MEDS ORDERED: BLOOD SUGAR DIAGNOSTIC 1 EACH STRIP IN SCH ×2 (17:30→18:00)
--- NOTE | 2019-07-25 17:45 | NUR ---
COMMERCIAL FISHING VESSEL OPERATOR OPENING NOTES RECEIVED PATIENT VIA GURNEY FROM ER. ALERT AND ORIENTED X4. NO S/S OF RESPIRATORY DISTRESS. DENIES ANY C/O PAIN NOR DISCOMFORT AT THIS TIME. LEFT FA #18 SL INTACT AND PATENT. NO SWALLOWING DIFFICULTY NOTED. ORIENTED PATIENT TO ROOM, UNIT AND CALL LIGHT. ALL BELONGINGS ACCOUNTED FOR. BED IN LOWEST POSITION ,LOCKED. BED ALARM ON. CALL LIGHT WITHIN REACH. ABLE TO VERBALIZE NEEDS.
--- NOTE | 2019-07-25 18:50 | NUR ---
ACCOUNTING MACHINE MECHANIC CLOSING NOTES PATIENT ASLEEP IN BED, AROUSABLE TO VERBAL AND TACTILE STIMULI. OPENS EYES. HOB ELEVATED. NO SOB. ON TELE MONITORING A-FIB RATE OF 90. NO EVIDENCE OF PAIN NOR DISCOMFORT. BUENO CATH INTACT AND PATENT DRAINING YELLOW COLORED URINE VIA BEDSIDE. RECTAL TUBE INTACT WITH NO BM AT THIS TIME. ON MECHANICAL VENT ORDERED MANJULA WELL. BED IN LOWEST POSITION, LOCKED. HIEN MIDLINE INTACT AND PATENT. CALL LIGHT WITHIN REACH. BED SIDERAILS UP X2. IN NO APPARENT DISTRESS. Addendum: 07/25/19 at 1850 by ANAT CARVAJAL RN DISREGARD CLOSING ENTRY ABOVE. Addendum: 07/25/19 at 1850 by ANAT CARVAJAL RN DISREGARD ENTRY ABOVE
--- NOTE | 2019-07-25 18:50 | NUR ---
CORE MAKER NOTES DISREGARD PREVIOUS ENTRY OF CLOSING NOTES
--- NOTE | 2019-07-25 19:29 | NUR ---
CHIEF OPERATIONS OFFICER CLOSING NOTES ALERT AND ORIENTED X4. NO SOB. DENIES ANY C/O PAIN NOR DISCOMFORT AT THIS TIME. LEFT FA #18 SL INTACT AND PATENT. RESTING COMFORTABLY IN BED. BED IN LOWEST POSITION ,LOCKED. BED ALARM ON. CALL LIGHT WITHIN REACH. IN NO APPARENT DISTRESS.
[2019-07-25 20:00] VITALS: BP 150/87
[2019-07-25] MEDS: ATORVASTATIN 10 MG TABLET PO SCH (21:38)
[2019-07-25] MEDS: MIRTAZAPINE 15 MG TABLET PO SCH (21:38)
[2019-07-25] MEDS ORDERED: ATORVASTATIN 10 MG TABLET PO SCH (22:00)
--- NOTE | 2019-07-25 22:00 | NUR ---
BLOOD SUGAR [id number], NO COVERAGE INSULIN GIVEN.
[2019-07-26] VITALS: BP 105/64
[2019-07-26 04:00] VITALS: BP 131/72
[2019-07-26 06:26] LABS: BASOPHILS # (AUTO) 0.1 /CMM (0.0-0.2); BASOPHILS % (AUTO) 0.8 % (0.0-2.0); EOSINOPHILS % (AUTO) 2.1 % (0.0-6.0); HEMATOCRIT 37 % (33-45); HEMOGLOBIN 11.9 g/dL (11.5-14.8); LYMPHOCYTES # (AUTO) 2.1 /CMM (0.8-4.8); MEAN CORPUSCULAR HGB CONC 32 g/dl (31.0-36.0); MEAN CORPUSCULAR VOLUME 77 fL (82-100); MONOCYTES # (AUTO) 0.6 /CMM (0.1-1.30); MONOCYTES % (AUTO) 9.1 % (2.0-12.0); NEUTROPHILS # (AUTO) 3.7 /CMM (1.8-8.9); PLATELET COUNT (AUTO) 261 /CMM (150-450); WHITE BLOOD COUNT (AUTO) 6.6 K/uL (4.3-11.0)
--- NOTE | 2019-07-26 06:45 | NUR ---
RN CLOSING NOTES: PATIENT RESTING IN BED, A/O X4. AMBULATORY, WITH STANDBY ASSIST ONLY. CALL LIGHT WITHIN REACH. BED IN LOWEST AND LOCKED POSITION. PATIENT STATES THAT HER RIGHT EAR RINGING IS LESS NOW. NO LEFT EYE TWITWING NOTED. STILL WITH THE RIGHT HAND NUMBNESS AND WEAKNESS, PER PATIENT IT'S GETTING BETTER. LEFT HAND WNL. RESTED THROUGHOUT THE NIGHT. VITALS STABLE.
[2019-07-26] MEDS: BLOOD SUGAR DIAGNOSTIC 1 EACH STRIP IN SCH ×4 (06:54→21:55)
[2019-07-26 06:55] LABS: CALCIUM, SERUM 8.7 mg/dL (8.5-10.1); CARBON DIOXIDE 26 mmol/L (21-32); CHLORIDE 110 mmol/L (98-107); CREATININE 0.8 mg/dL (0.6-1.3); GLUCOSE 96 mg/dL (74-106); POTASSIUM 3.9 mmol/L (3.5-5.1); SODIUM SERUM 144 mmol/L (136-145); UREA NITROGEN, BLOOD 12 mg/dL (7-18)
--- NOTE | 2019-07-26 06:55 | NUR ---
BLOOD SUGAR FINGERSTICK=[id number], NO INSULIN COVERAGE.
[2019-07-26 06:57] LABS: CHOLESTEROL 171 mg/dL (<200); HDL CHOLESTEROL 46 mg/dL (40-60); LDL 98 mg/dL (0-99); TRIGLYCERIDES 191 mg/dL (30-150)
--- NOTE | 2019-07-26 07:25 | NUR ---
MENTAL HEALTH CLINICIAN OPENING NOTES RECEIVED PT IN BED, AWAKE, A/O X4. PT TOLERATING RA, WITH NO ACUTE RESPIRATORY DISTRESS NOTED. PT DENIES PAIN OR DISCOMFORT AT THIS TIME. PT DENIES ANY CONCERNS OR QUESTIONS AT THE MOMENT WELL. ON TELEMONITORING WITH SR 80. PIV LFA G18, FLUSHED WITH NS, INTACT AND OPERATIONAL. PT KEPT COMFORTABLE IN BED. CALL LIGHT KEPT WITHIN REACH. PT'S BED IN LOWEST, LOCKED POSITION WITH SRX3. WILL CONTINUE PLAN OF CARE.
[2019-07-26] MEDS ORDERED: OMEPRAZOLE 20 MG CAPSULE.DR PO SCH (07:30)
[2019-07-26] MEDS: PANTOPRAZOLE 40 MG TABLET.DR PO SCH (07:58)
[2019-07-26] MEDS: LEVOTHYROXINE SODIUM 25 MCG TABLET PO SCH (07:58)
[2019-07-26 08:00] VITALS: BP 130/83
[2019-07-26] MEDS: VENLAFAXINE XR 75 MG CAP.SR.24H PO SCH (08:01)
[2019-07-26] MEDS: BACLOFEN (10 MG) 10 MG TABLET PO SCH ×2 (08:01→17:21)
[2019-07-26] MEDS: ASPIRIN EC 325 MG TABLET.DR PO SCH (08:35)
[2019-07-26] MEDS: busPIRone 5 MG TABLET PO SCH (08:35)
[2019-07-26] MEDS ORDERED: busPIRone HCL 10 MG TABLET PO SCH (09:00)
[2019-07-26] MEDS: CARVEDILOL 3.125 MG TABLET PO SCH ×2 (09:39→17:21)
--- NOTE | 2019-07-26 13:46 | NUR ---
Social service consult requested by Dr Townsend for stroke protocol. Per chart review and MD notes, pt is a 58-year-old female who presented to the emergency department yesterday with multiple complaints. Pt stated her right arm has been numb since Tuesday. She also reported difficulty speaking and her daughter stated that pt seemed slow to respond. HAND UMBRELLA TIPPER met with the pt bedside. HAND UMBRELLA TIPPER introduced self and explained her role. Pt is alert and oriented x 4. Pt was sitting upright on her bed during the assessment. Pt's mood is congruent. Pt. resides with her and daughter in a home in [place]. Pt is independent with her ADLs/IADLs. Pt stated, this is the first time she has experienced these symptoms. Pt reports to have no history of stroke. Pt. reports to have a psychiatric diagnosis of Major Depressive Disorder and takes Mirlazapine, Buspirone and Venlafaxine daily. Pt's psychiatrist is Dr. Sellers and pt sees her psychiatrist on a quarterly basis. Pt currently denies suicidal ideations, intent, plan and means. Pt reports to be able to ambulate with a walker only when feeling dizzy, otherwise pt. is ambulatory independently. HAND UMBRELLA TIPPER provided pt with active listening and supportive counseling. HAND UMBRELLA TIPPER completed the PHQ-9 assessment and pt. scored a 4. No other social service needs are requested at this time. HAND UMBRELLA TIPPER updated HONORIO Morris with aforementioned information. HAND UMBRELLA TIPPER is available, if needed.
[2019-07-26] MEDS ORDERED: MAG HYDROX/AL HYDROX/SIMETH 30 ML UDC PO PRN (14:45)
[2019-07-26] MEDS: ENOXAPARIN SODIUM 40 MG/0.4 ML DISP.SYRIN SQ SCH ×2 (15:01→15:07)
[2019-07-26 16:00] VITALS: BP 108/80
--- NOTE | 2019-07-26 18:52 | NUR ---
MS RN CLOSING NOTES PT REMAINS IN BED, AWAKE, A/O X4. PT TOLERATING RA, WITH NO ACUTE RESPIRATORY DISTRESS NOTED. PT DENIES PAIN OR DISCOMFORT AT THIS TIME. PIV LFA G18, FLUSHED WITH NS, INTACT AND OPERATIONAL. PT KEPT COMFORTABLE IN BED. ALL NEEDS AND CARE ATTENDED. CALL LIGHT KEPT WITHIN REACH. PT'S BED IN LOWEST, LOCKED POSITION WITH SRX3. WILL ENDORSE TO INCOMING HIGH CLIMBER NURSE FOR OUMAR.
[2019-07-26 20:00] VITALS: BP 116/75
[2019-07-26 21:30] VITALS: BP 116/75
[2019-07-26] MEDS: MIRTAZAPINE 15 MG TABLET PO SCH (21:52)
[2019-07-26] MEDS: ATORVASTATIN 10 MG TABLET PO SCH (21:52)
--- NOTE | 2019-07-26 21:56 | NUR ---
PATIENT'S BLOOD SUGAR FINGERSTICK=99 NO INSULIN GIVEN. PATIENT SAID SHE'S HUNGRY, SNACK PROVIDED.
--- NOTE | 2019-07-26 22:03 | NUR ---
PATIENT HAS RIGHT LEG SLIGHTLY FEW DRIFTS. BOTH ARMS ARE WNL. PATIENT SAID THAT SHE STILL HAVING ON AND OFF LEFT EYE TWITCHING. PATIENT ALSO SAID THAT HER RIGHT LEG FROM KNEE DOWN HAS CONSTANT PAIN 3/10 LEVEL, HER RIGHT HAND FINGERS HAS TINGLING SENSATIONS, STILL WITH WEAKNESS. PATIENT IS A/O X4. NO FACIAL DROOPING.
[2019-07-27] MEDS: BLOOD SUGAR DIAGNOSTIC 1 EACH STRIP IN SCH ×2 (06:34→12:06)
--- NOTE | 2019-07-27 06:34 | NUR ---
BLOOD SUGAR FINGERSTICK=89, NO INSULIN GIVEN.
--- NOTE | 2019-07-27 07:25 | NUR ---
MS RN OPENING NOTES RECEIVED PT IN BED, ASLEEP, EASILY AROUSED, A/O X4. PT TOLERATING RA, WITH NO ACUTE RESPIRATORY DISTRESS NOTED. PT DENIES PAIN OR DISCOMFORT AT THIS TIME. PT DENIES ANY CONCERNS OR QUESTIONS AT THE MOMENT WELL. PIV LFA G18, FLUSHED WITH NS, INTACT AND OPERATIONAL. PT KEPT COMFORTABLE IN BED. CALL LIGHT KEPT WITHIN REACH. PT'S BED IN LOWEST, LOCKED POSITION WITH SRX3. WILL CONTINUE PLAN OF CARE.
[2019-07-27 08:00] VITALS: BP 146/86
[2019-07-27 08:50] VITALS: BP 146/86
[2019-07-27] MEDS: CARVEDILOL 3.125 MG TABLET PO SCH (08:50)
[2019-07-27] MEDS: PANTOPRAZOLE 40 MG TABLET.DR PO SCH (08:50)
[2019-07-27] MEDS: BACLOFEN (10 MG) 10 MG TABLET PO SCH (08:50)
[2019-07-27] MEDS: LEVOTHYROXINE SODIUM 25 MCG TABLET PO SCH (08:50)
[2019-07-27] MEDS: busPIRone 5 MG TABLET PO SCH (08:50)
[2019-07-27] MEDS: VENLAFAXINE XR 75 MG CAP.SR.24H PO SCH (08:50)
[2019-07-27] MEDS: ASPIRIN EC 325 MG TABLET.DR PO SCH (08:50)
[2019-07-27 08:57] LABS: CALCIUM, SERUM 8.6 mg/dL (8.5-10.1); CREATININE 0.8 mg/dL (0.6-1.3)
--- NOTE | 2019-07-27 12:53 | NUR ---
MS WARP STARTER NOTES PT TO DISCHARGE TO HOME. PT A/O X4. PT TOLERATING RA, WITH NO ACUTE RESPIRATORY DISTRESS NOTED. PT DENIES PAIN OR DISCOMFORT AT THE TIME OF DISCHARGE PIV LFA G18, REMOVED AND APPLIED DRESSING. SKIN INTACT. ALL NEEDS AND CARE PROVIDED. DISCHARGE INSTRUCTIONS AND INVENTORY LIST, REVIEWED AND SIGNED BY PT. PRESCRIPTIONS AND SIMONA MAY/ERICK'S CONTACT INFORMATION GIVEN TO PT FOR FOLLOW UP. PT LEFT THE UNIT AT 1255. CN/JR AND HOSPITALIST/NN AWARE OF DISCHARGE.
[2019-07-27] MEDS ORDERED: ERGOCALCIFEROL (VITAMIN D 2) 50,000 UNIT CAPSULE PO SCH (15:00)
== END 2019-07-27 12:45 | disposition home or self-care (01) | DRG 69 ==
LOC: ER 11:38 → MED 15:39 → TELE 16:31 → MED 07-26 08:30
PROVIDERS: ADMIT Nurse Practitioner Acute Care; ATTEND Nurse Practitioner Acute Care
DX: G45.9 Transient cerebral ischemic attack, unspecified (principal); I16.0 Hypertensive urgency; I10 Essential (primary) hypertension; E11.9 Type 2 diabetes mellitus without complications; K21.9 Gastro-esophageal reflux disease without esophagitis; F32.9 Major depressive disorder, single episode, unspecified; E03.9 Hypothyroidism, unspecified; E66.9 Obesity, unspecified; Z68.29 Body mass index [BMI] 29.0-29.9, adult; E78.5 Hyperlipidemia, unspecified; R20.0 Anesthesia of skin; R07.9 Chest pain, unspecified; Z79.84 Long term (current) use of oral hypoglycemic drugs; D32.9 Benign neoplasm of meninges, unspecified; Z83.3 Family history of diabetes mellitus
CPT/HCPCS: 36415; 70450-TC; 70551-TC; 71045-TC; 80048-TC; 80061-TC; 80076-TC; 82962-TC; 83880; 84443-TC; 84484-TC; 85025-TC; 85378-TC; 85652-TC; 85730-TC; 87081-TC; 92611-TC; 93307-TC; 97116-TC; 97530-TC; 97535-TC; G0378; J1650; J1815; J7030

== ENCOUNTER 2019-09-12 09:46 | Outpatient (CLI) | payer BC ==
[~2019-09-12 09:46] MED LIST changes: -ATOR10TA PO; +BUSP10TA3 PO; +ERGO500014 PO; -GABA-534 PO; -HYDR-4384 PO; +LEVO25TA2 PO; -LEVO500T75 PO; -METR500T PO; +OLME5TAB6 PO; +ROSU5TAB13 PO
[2019-09-12] MEDS ORDERED: GADOTERIDOL 279.3 MG/ML VIAL IV ONE (09:47)
== END 2019-09-12 23:59 | disposition home or self-care (01) ==
LOC: MRI 09:46
PROVIDERS: ATTEND Family Medicine
DX: M47.813 Spondylosis without myelopathy or radiculopathy, cervicothoracic region (principal); M48.02 Spinal stenosis, cervical region; M50.23 Other cervical disc displacement, cervicothoracic region; M46.03 Spinal enthesopathy, cervicothoracic region; M25.78 Osteophyte, vertebrae; J34.1 Cyst and mucocele of nose and nasal sinus; I63.81 Other cerebral infarction due to occlusion or stenosis of small artery
CPT/HCPCS: 70553; 72141; A9579

== ENCOUNTER 2020-03-28 11:46 | Outpatient (CLI) | payer BC ==
[2020-03-28 12:51] LABS: BASOPHILS # (AUTO) 0.1 /CMM (0.0-0.2); BASOPHILS % (AUTO) 0.9 % (0.0-2.0); EOSINOPHILS % (AUTO) 1.8 % (0.0-6.0); HEMATOCRIT 47 % (33-45); HEMOGLOBIN 15.4 g/dL (11.5-14.8); LYMPHOCYTES % (AUTO) 26.5 % (20.0-44.0); MEAN CORPUSCULAR HGB CONC 33 g/dl (31.0-36.0); MEAN CORPUSCULAR VOLUME 90 fL (82-100); MONOCYTES # (AUTO) 0.7 /CMM (0.1-1.30); NEUTROPHILS # (AUTO) 4.7 /CMM (1.8-8.9); NEUTROPHILS % (AUTO) 61.8 % (43.0-81.0); PLATELET COUNT (AUTO) 236 /CMM (150-450); RED BLOOD CELL COUNT(AUTO) 5.16 MIL/uL (4.0-5.2); WHITE BLOOD COUNT (AUTO) 7.6 K/uL (4.3-11.0)
[2020-03-28 12:53] LABS: APPEARANCE,URINE CLEAR (CLEAR); BILIRUBIN,URINE NEGATIVE (NEGATIVE); BLOOD, URINE NEGATIVE Ery/uL (NEGATIVE); COLOR,URINE YELLOW (YELLOW); KETONES,URINE NEGATIVE (NEGATIVE); LEUKOCYTE ESTERASE ,URINE TRACE (NEGATIVE); NITRITE, URINE NEGATIVE (NEGATIVE); PROTEIN,URINE NEGATIVE (NEGATIVE); UGLUCOSE NEGATIVE (NEGATIVE); UROBILINOGEN,URINE 0.2 EU/dL (0.2)
[2020-03-28 13:05] LABS: ALBUMIN 3.8 g/dL (3.4-5.0); BILIRUBIN,TOTAL 0.3 mg/dL (0.2-1.0); CALCIUM, SERUM 8.9 mg/dL (8.5-10.1); CREATININE 0.8 mg/dL (0.6-1.3); POTASSIUM 4.3 mmol/L (3.5-5.1); TOTAL PROTEIN, SERUM 7.5 g/dL (6.4-8.2)
[2020-03-28 13:12] LABS: BACTERIA,URINE None seen /HPF (None Seen); RBC,URINE NONE SEEN /HPF (0-2); SQUAMOUS EPITHELIAL CELL,UR Few /HPF (None Seen); WBC,URINE 0-2 /HPF (0-3)
[2020-03-28 13:23] LABS: THYROID STIMULATING HORMONE 3.056 uIU/mL (0.358-3.74)
[2020-03-29 05:07] LABS: FOLIC ACID 15.5 ng/mL (>3.0)
== END 2020-03-28 23:59 | disposition home or self-care (01) ==
LOC: LAB 11:46
PROVIDERS: ATTEND Family Medicine
DX: I10 Essential (primary) hypertension (principal); E11.9 Type 2 diabetes mellitus without complications; E78.5 Hyperlipidemia, unspecified; R10.9 Unspecified abdominal pain
CPT/HCPCS: 80053-TC; 80061-TC; 81000-TC; 82306; 82728-TC; 83540-TC; 84439-TC; 84443-TC; 85025-TC

== ENCOUNTER 2020-06-17 12:01 | Outpatient (CLI) | payer BC ==
[2020-06-17] MEDS ORDERED: GADOTERATE MEGLUMINE 10 MMOL/20 ML VIAL IV ONE (12:02)
[2020-06-17 12:42] LABS: CREATININE 0.8 mg/dL (0.6-1.3)
== END 2020-06-17 23:59 | disposition home or self-care (01) ==
LOC: LAB 12:01
PROVIDERS: ATTEND Family Medicine
DX: D32.0 Benign neoplasm of cerebral meninges (principal)
CPT/HCPCS: 36415; 70553; 82565; 84520; A9575

== ENCOUNTER 2020-07-24 11:21 | Outpatient (CLI) | payer BC | END 2020-07-24 23:59 | disposition home or self-care (01) | LOC: CT 11:21 | PROVIDERS: ATTEND Family Medicine | DX: J34.2 Deviated nasal septum (principal); J34.1 Cyst and mucocele of nose and nasal sinus | CPT/HCPCS: 70486-TC ==

== ENCOUNTER 2020-11-26 09:21 | Outpatient (CLI) | payer BC ==
[2020-11-26 10:44] LABS: BASOPHILS # (AUTO) 0.1 /CMM (0.0-0.2); BASOPHILS % (AUTO) 0.5 % (0.0-2.0); EOSINOPHILS % (AUTO) 1.9 % (0.0-6.0); HEMATOCRIT 47 % (33-45); LYMPHOCYTES # (AUTO) 2.1 /CMM (0.8-4.8); LYMPHOCYTES % (AUTO) 22.5 % (20.0-44.0); MEAN CORPUSCULAR HGB CONC 34 g/dl (31.0-36.0); MEAN CORPUSCULAR VOLUME 90 fL (82-100); MONOCYTES # (AUTO) 0.7 /CMM (0.1-1.30); MONOCYTES % (AUTO) 7.6 % (2.0-12.0); NEUTROPHILS # (AUTO) 6.2 /CMM (1.8-8.9); NEUTROPHILS % (AUTO) 67.5 % (43.0-81.0); PLATELET COUNT (AUTO) 263 /CMM (150-450); RED BLOOD CELL COUNT(AUTO) 5.22 MIL/uL (4.0-5.2); WHITE BLOOD COUNT (AUTO) 9.2 K/uL (4.3-11.0)
[2020-11-26 10:48] LABS: BILIRUBIN,URINE NEGATIVE (NEGATIVE); LEUKOCYTE ESTERASE ,URINE NEGATIVE (NEGATIVE); NITRITE, URINE NEGATIVE (NEGATIVE); PH,URINE 6.5 (5.0-8.0); PROTEIN,URINE NEGATIVE (NEGATIVE); UGLUCOSE NEGATIVE (NEGATIVE); UROBILINOGEN,URINE 0.2 EU/dL (0.2)
[2020-11-26 10:49] LABS: COLOR,URINE STRAW (YELLOW)
[2020-11-26 11:16] LABS: ALBUMIN 3.9 g/dL (3.4-5.0); BILIRUBIN,TOTAL 0.3 mg/dL (0.2-1.0); CALCIUM, SERUM 9.1 mg/dL (8.5-10.1); CREATININE 0.8 mg/dL (0.6-1.3); POTASSIUM 4.1 mmol/L (3.5-5.1); TOTAL PROTEIN, SERUM 7.4 g/dL (6.4-8.2)
[2020-11-26 12:34] LABS: FREE T4 (FREE THYROXINE) 1.23 ng/dL (0.76-1.46); THYROID STIMULATING HORMONE 3.88 uIU/mL (0.358-3.74)
== END 2020-11-26 23:59 | disposition home or self-care (01) ==
LOC: US 09:21
PROVIDERS: ATTEND Family Medicine
DX: I10 Essential (primary) hypertension (principal); J34.1 Cyst and mucocele of nose and nasal sinus; G56.01 Carpal tunnel syndrome, right upper limb; M48.02 Spinal stenosis, cervical region; M79.89 Other specified soft tissue disorders
CPT/HCPCS: 36415; 80053-TC; 80061-TC; 82306; 84439-TC; 84443-TC; 85025-TC; 93970-TC

== ENCOUNTER 2021-10-14 12:33 | Outpatient (CLI) | payer BC ==
[~2021-10-14 12:33] MED LIST changes: -ERGO500014 PO; +ERGO500093 PO; +MIRT-90 PO; -MIRT15TA7 PO
[2021-10-14 13:53] LABS: ALBUMIN 3.9 g/dL (3.4-5.0); BILIRUBIN,TOTAL 0.3 mg/dL (0.2-1.0); CREATININE 0.9 mg/dL (0.6-1.3); POTASSIUM 3.6 mmol/L (3.5-5.1); TOTAL PROTEIN, SERUM 7.4 g/dL (6.4-8.2)
[2021-10-14 14:06] LABS: BASOPHILS # (AUTO) 0.1 K/uL (0.0-0.2); BASOPHILS % (AUTO) 0.9 % (0.0-2.0); EOSINOPHILS % (AUTO) 1.8 % (0.0-6.0); HEMATOCRIT 45 % (33-45); HEMOGLOBIN 15.5 g/dL (11.5-14.8); LYMPHOCYTES # (AUTO) 2.1 K/uL (0.8-4.8); LYMPHOCYTES % (AUTO) 26.4 % (20.0-44.0); MEAN CORPUSCULAR HGB CONC 34 g/dl (31.0-36.0); MEAN CORPUSCULAR VOLUME 88 fL (82-100); MONOCYTES # (AUTO) 0.6 K/uL (0.1-1.30); MONOCYTES % (AUTO) 7.5 % (2.0-12.0); NEUTROPHILS # (AUTO) 5.1 K/uL (1.8-8.9); NEUTROPHILS % (AUTO) 63.4 % (43.0-81.0); PLATELET COUNT (AUTO) 255 K/uL (150-450); RED BLOOD CELL COUNT(AUTO) 5.16 MIL/uL (4.0-5.2)
== END 2021-10-14 23:59 | disposition home or self-care (01) ==
LOC: LAB 12:33
PROVIDERS: ATTEND Internal Medicine Gastroenterology
DX: R79.1 Abnormal coagulation profile (principal); R97.8 Other abnormal tumor markers; R19.7 Diarrhea, unspecified
CPT/HCPCS: 36415; 80053-TC; 82150-TC; 83690-TC; 85025-TC

== ENCOUNTER 2021-12-08 08:40 | Outpatient (CLI) | payer BC | END 2021-12-08 23:59 | disposition home or self-care (01) | LOC: WOU 08:40 | PROVIDERS: ATTEND Surgery | DX: T85.44XA Capsular contracture of breast implant, initial encounter (principal); N64.4 Mastodynia; E11.51 Type 2 diabetes mellitus with diabetic peripheral angiopathy without gangrene; I10 Essential (primary) hypertension | CPT/HCPCS: G0463 ==

== ENCOUNTER 2021-12-18 11:07 | Outpatient (CLI) | payer BC ==
[2021-12-18 12:13] LABS: BASOPHILS # (AUTO) 0.1 K/uL (0.0-0.2); BASOPHILS % (AUTO) 0.8 % (0.0-2.0); EOSINOPHILS % (AUTO) 1.3 % (0.0-6.0); HEMATOCRIT 45 % (33-45); HEMOGLOBIN 15.6 g/dL (11.5-14.8); LYMPHOCYTES # (AUTO) 2.1 K/uL (0.8-4.8); LYMPHOCYTES % (AUTO) 24.2 % (20.0-44.0); MEAN CORPUSCULAR HGB CONC 35 g/dl (31.0-36.0); MEAN CORPUSCULAR VOLUME 86 fL (82-100); MONOCYTES # (AUTO) 0.7 K/uL (0.1-1.30); MONOCYTES % (AUTO) 7.8 % (2.0-12.0); NEUTROPHILS # (AUTO) 5.7 K/uL (1.8-8.9); NEUTROPHILS % (AUTO) 65.9 % (43.0-81.0); PLATELET COUNT (AUTO) 241 K/uL (150-450); RED BLOOD CELL COUNT(AUTO) 5.22 MIL/uL (4.0-5.2); WHITE BLOOD COUNT (AUTO) 8.6 K/uL (4.3-11.0)
[2021-12-18 12:53] LABS: CREATININE 0.9 mg/dL (0.6-1.3); POTASSIUM 3.9 mmol/L (3.5-5.1)
== END 2021-12-18 23:59 | disposition home or self-care (01) ==
LOC: LAB 11:07
PROVIDERS: ATTEND Surgery
DX: Z01.818 Encounter for other preprocedural examination (principal); T85.44XA Capsular contracture of breast implant, initial encounter
CPT/HCPCS: 36415; 71045-TC; 80048-TC; 84703-TC; 85025-TC; 85730-TC

== ENCOUNTER 2021-12-22 08:20 | Outpatient (CLI) | payer BC | END 2021-12-22 23:59 | disposition home or self-care (01) | LOC: WOU 08:20 | PROVIDERS: ATTEND Surgery | DX: T85.44XD Capsular contracture of breast implant, subsequent encounter (principal); N64.4 Mastodynia; E11.9 Type 2 diabetes mellitus without complications; Z79.84 Long term (current) use of oral hypoglycemic drugs; I10 Essential (primary) hypertension | CPT/HCPCS: G0463 ==

== ENCOUNTER 2021-12-22 08:56 | Outpatient (CLI) | payer BC | END 2021-12-22 23:59 | disposition home or self-care (01) | LOC: WOU 08:56 → LAB 23:59 | PROVIDERS: ATTEND Surgery | DX: Z01.812 Encounter for preprocedural laboratory examination (principal); Z20.822 Contact with and (suspected) exposure to COVID-19 | CPT/HCPCS: C9803; U0003 ==

== ENCOUNTER 2021-12-29 05:44 | Day surgery (SDC) | payer BC ==
[~2021-12-29 05:44] MED LIST changes: +ANESTHESIA TRAY IN PYXIS 1 EA TRAY MC ONE
--- NOTE | 2021-12-29 06:20 | NUR ---
RN NOTES RECEIVED PT IN RM 314-1 DAY SURGERY AMBULATORY ACCOMPANY BY DAUGHTER.NO SIGN SOB/DISTRESS NOTED.STABLE.V/S TAKEN AND RECORDED.CALL LIGHT WITHIN REACH.SAFETY MEASURE IN PLACE.WAITING TO BE PICK FROM OR PERSONEL.
[2021-12-29] MEDS ORDERED: FENTANYL PF 250MCG/5ML AMPUL ONE (07:19)
[2021-12-29] MEDS ORDERED: ROCURONIUM BROMIDE 50 MG/5 ML ONE (07:19)
[2021-12-29] MEDS ORDERED: TRAMADOL HCL 50 MG TABLET PO PRN (07:30)
--- NOTE | 2021-12-29 07:30 | NUR ---
RN OPENING NOTE PATIENT IS A DAY SURGERY, PATIENT WAS TAKEN TO SURGERY DURING PREVIOUS SHIFT, PATIENT IS NOT BACK FROM SURGERY YET.
[2021-12-29] MEDS ORDERED: SCOPOLAMINE PATCH 1 MG/72HR TD ONE (07:57)
[2021-12-29] MEDS ORDERED: LIDOCAINE MPF 1%-EPI 1:200,000 30 ML VIAL IJ ONE (08:50)
--- NOTE | 2021-12-29 10:00 | NUR ---
RN NOTE PATIENT CAME BACK FROM SURGERY, V/S TAKEN, STABLE AND RECORDED. PATIENT WAS ORIENTED TO ROOM SET UP AND SHOWED PATIENT HOW TO USE CALL LIGHT. PATIENT AWAKE IN BED RESTING, A/O X 4. 4/10 PAIN NOTED AT THIS TIME, PATIENT REFUSED PAIN MEDICATION. ON 2L OXYGEN, NO DISTRESS OR SHORTNESS OF BREATH NOTED. IV ACCESS R HAND, INTACT, PATENT AND FLUSHING WELL. FALL AND SAFETY MEASURES IN PLACE, BED ALARM ON, BED IN LOW AND LOCK POSITION, CALL LIGHT AND TABLE WITHIN EASY REACH, SIDE RAILS UP X2. WILL CONTINUE TO MONITOR.
--- NOTE | 2021-12-29 13:12 | NUR ---
PROCESS CONTROL BOARD OPERATOR NOTE PATIENT DISCHARGED IN MEDICAL STABLE CONDITION. A/O X4. V/S TAKEN, STABLE AND RECORDED. NO IV ACCESS. SKIN ASSESSMENT DONE, SKIN INTACT EXCEPT FOR SURGICAL SITE, DRESSING INTACT, CLEAN AND DRY. NAME ARM BAND REMOVED. ALL BELONGINGS CHECKED AND SIGNED. HEALTH TEACHING AND DISCHARGE INSTRUCTIONS GIVEN AND VERBALIZED UNDERSTANDING. PATIENT LEFT UNIT AMBULATING WITH NO SIGNS OF DISTRESS, ACCOMPANIED BY RN TO THE LOBBY. CHARGE NURSE AWARE OF DISCHARGED.
== END 2021-12-29 12:00 | disposition home or self-care (01) ==
LOC: DS 05:44 → MED 05:46 → UNDOADMIN 05:46 → UNDODISIN 12:00 → DS 12:00
PROVIDERS: ATTEND Surgery
DX: T85.44XA Capsular contracture of breast implant, initial encounter (principal); Y81.3 Surgical instruments, materials and general- and plastic-surgery devices (including sutures) associated with adverse incidents; T85.848A Pain due to other internal prosthetic devices, implants and grafts, initial encounter; I10 Essential (primary) hypertension; E11.9 Type 2 diabetes mellitus without complications; Z98.890 Other specified postprocedural states; Z79.899 Other long term (current) drug therapy; F41.9 Anxiety disorder, unspecified; E78.5 Hyperlipidemia, unspecified; Z90.710 Acquired absence of both cervix and uterus; Z82.49 Family history of ischemic heart disease and other diseases of the circulatory system
CPT/HCPCS: 19371; 36415; 86850; 87081; J0690; J1100; J1885; J2704; J2765; J3010; J3490 ×3; J7030; G0378

== ENCOUNTER 2022-01-05 08:30 | Outpatient (CLI) | payer BC ==
[~2022-01-05 08:30] MED LIST changes: -ANESTHESIA TRAY IN PYXIS 1 EA TRAY MC ONE
== END 2022-01-05 23:59 | disposition home or self-care (01) ==
LOC: WOU 08:30
PROVIDERS: ATTEND Surgery
DX: Z45.812 Encounter for adjustment or removal of left breast implant (principal); Z45.811 Encounter for adjustment or removal of right breast implant; N64.4 Mastodynia; E11.51 Type 2 diabetes mellitus with diabetic peripheral angiopathy without gangrene; I10 Essential (primary) hypertension; Z79.84 Long term (current) use of oral hypoglycemic drugs
CPT/HCPCS: G0463

== ENCOUNTER 2022-01-20 11:06 | Outpatient (CLI) | payer BC ==
[2022-01-20] MEDS ORDERED: GADOTERATE MEGLUMINE 10 MMOL/20 ML VIAL IV ONE (11:07)
== END 2022-01-20 23:59 | disposition home or self-care (01) ==
LOC: MRI 11:06
PROVIDERS: ATTEND Family Medicine
DX: I63.81 Other cerebral infarction due to occlusion or stenosis of small artery (principal); D32.0 Benign neoplasm of cerebral meninges; J34.1 Cyst and mucocele of nose and nasal sinus
CPT/HCPCS: 70553; A9575

== ENCOUNTER → 2022-04-20 | Outpatient (CLI) | payer BC | END | disposition home or self-care (01) | LOC: WOU 08:45 | PROVIDERS: ATTEND Surgery | DX: T85.44XD Capsular contracture of breast implant, subsequent encounter (principal); N64.4 Mastodynia; E11.9 Type 2 diabetes mellitus without complications; Z79.84 Long term (current) use of oral hypoglycemic drugs; I10 Essential (primary) hypertension | CPT/HCPCS: G0463 ==

== ENCOUNTER 2022-11-15 11:36 | Outpatient (CLI) | payer BC | END 2022-11-15 23:59 | disposition home or self-care (01) | LOC: MRI 11:36 | PROVIDERS: ATTEND Family Medicine | DX: M50.223 Other cervical disc displacement at C6-C7 level (principal); M50.320 Other cervical disc degeneration, mid-cervical region, unspecified level; M48.02 Spinal stenosis, cervical region | CPT/HCPCS: 72141-TC ==

== ENCOUNTER 2023-11-30 08:27 | Day surgery (SDC) | payer BC ==
[2023-11-30] MEDS ORDERED: LIDOCAINE 1%-EPI 1:100,000 20 ML VIAL ONE (09:22)
[2023-11-30] MEDS ORDERED: BUPIVACAINE 0.5 % PF 150 MG/30 ML VIAL ONE (09:22)
[2023-11-30] MEDS ORDERED: FENTANYL PF 100MCG/2ML AMPUL ONE (09:34)
[2023-11-30] MEDS ORDERED: MIDAZOLAM HCL 2 MG/2ML VIAL ONE (09:35)
[2023-11-30] MEDS ORDERED: SUCCINYLCHOLINE CHLORIDE 20 MG/ML VIAL ONE (10:36)
[2023-11-30] MEDS ORDERED: BACITRACIN ZINC OINT (15 GM) 15 GM TUBE TP ONE (11:24)
[2023-11-30] MEDS ORDERED: IV LR 1000 ML 1,000 ML IV PRN (12:30)
[2023-11-30] MEDS ORDERED: CELECOXIB 100 MG CAPSULE PO ONE (14:00)
[2023-11-30] MEDS ORDERED: ACETAMINOPHEN 325 MG TABLET PO ONE (14:00)
[2023-11-30] MEDS ORDERED: GABAPENTIN 100 MG CAPSULE PO ONE (14:00)
== END 2023-11-30 13:00 | disposition home or self-care (01) ==
LOC: DS 08:27
PROVIDERS: ATTEND Surgery
DX: K64.4 Residual hemorrhoidal skin tags (principal); K64.8 Other hemorrhoids; I10 Essential (primary) hypertension; K21.9 Gastro-esophageal reflux disease without esophagitis; E11.9 Type 2 diabetes mellitus without complications; Z98.890 Other specified postprocedural states; Z79.899 Other long term (current) drug therapy
CPT/HCPCS: 46260; 82962; A6402; A6403; J0330; J0690; J2250; J2405; J2704; J3010; J3490; J7030; J7120

== ENCOUNTER 2024-02-09 11:22 | Outpatient (CLI) | payer BC ==
[2024-02-10 08:10] LABS: CANCER AG, 15-3 8.8 U/mL (0.0-25.0)
[2024-02-10 12:11] LABS: FREE KAPPA LT CHAINS SERUM 18.9 mg/L (3.3-19.4); FREE LAMBDA LT CHAIN SERUM 46.4 mg/L (5.7-26.3); KAPPA/LAMBDA RATIO SERUM 0.41 (0.26-1.65)
[2024-02-10 17:10] LABS: *SPE A/G RATIO 0.9 (0.7-1.7); *SPE ALBUMIN 3.5 g/dL (2.9-4.4); *SPE ALPHA-1-GLOBULIN 0.2 g/dL (0.0-0.4); *SPE ALPHA-2-GLOBULIN 0.9 g/dL (0.4-1.0); *SPE BETA GLOBULIN 1.4 g/dL (0.7-1.3); *SPE GLOBULIN, TOTAL 3.7 g/dL (2.2-3.9); *SPE M-SPIKE Not Observed g/dL (Not Observed); *SPE PROTEIN TOTAL 7.2 g/dL (6.0-8.5); *SPEGAMMA GLOBULIN 1.2 g/dL (0.4-1.8)
== END 2024-02-09 23:59 | disposition home or self-care (01) ==
LOC: LAB 11:22
PROVIDERS: ATTEND Internal Medicine Hematology & Oncology
DX: C50.011 Malignant neoplasm of nipple and areola, right female breast (principal); R97.0 Elevated carcinoembryonic antigen [CEA]; R77.9 Abnormality of plasma protein, unspecified
CPT/HCPCS: 36415; 82378; 84155; 84165; 86300